=== PATIENT | male | born 1980 | race African-American/Black ===

== ENCOUNTER 2022-10-19 10:21 | Outpatient (CLI) | payer OTHER, SELFPAY ==
--- NOTE | ~2022-10-19 | XR_ITS ---
Cervical Spine: AP, lateral, open-mouth views Clinical History: Pain Findings: The normal lordotic curve is maintained. No fracture or subluxation seen. There is minimal degenerative disc change at C3-C4.. Pre-vertebral soft tissues are unremarkable. Impression: Minimal degenerative disc narrowing at C3-C4. Reviewed, dictated and finalized at [facility]. [employer] Impression: Minimal degenerative disc narrowing at C3-C4.
== END 2022-10-19 10:22 | disposition home or self-care (01) ==
LOC: ANHIMG 10:28
PROVIDERS: PCP Nurse Practitioner Adult Health; Visit Provider Nurse Practitioner Adult Health
DX: M54.2 Cervicalgia (principal)
CPT/HCPCS: 72050

== ENCOUNTER 2022-11-26 07:46 | Outpatient (RCR) | payer OTHER, SELFPAY ==
--- NOTE | 2022-11-26 11:15 | PTOPEVAL1 ---
Assessment and note entered by Luz Marina David PT Evaluation Information Assessment Status Evaluation Diagnosis Cervical disc degeneration Subjective Information Pt reporting pain only when he looks up from his phone. Pt mention having a family history of poor posture. Reported Pain Level Pain Score 0: Self Report Additional Pain Score Comments Pt only able to report pain when looking up from his phone after long period of time. Assessment PT Clinical Summary Pt is a 42 year old male who presents with cervical pain. Pt only able to report pain is worse when he has been on his phone for long period of time then tries to look up. Pt has poor posture with noted moderately forward head and rounded shoulders. Pt also has a noted L trunk lean with unsupported sitting. Pt educated on sleeping positioning and posture when using cellphone to reduce pain. Pt noted to have limited active ROM in all directions with cervical assessment, but no increase in pain. Pt trained on HEP, but it was noted the pt must break down the movements and correctly perform exercises (poor body awareness). Pt will benefit from skilled therapy to reduce cervical pain, increase active ROM in all directions, improve posture, and increase body awareness with tasks such as lifting . Plan of Care Interventions Hot Pack/Cold Pack,Manual Therapy,Mechanical Traction,Neuro Re-education,Patient/Caregiver Education,Therapeutic Activities,Therapeutic Exercise,Ultrasound PT Services Indicated Yes Treatment Frequency and 2x/week for 4 weeks Duration These treatments will address the objective and functional deficits as defined above. The patient will be advanced safely and appropriately in order for the patient to progress towards his/her prior level of function. Additional exercises will be introduced and as well as a comprehensive home exercise program upon discharge, if needed, ?to ensure carryover of functional gains achieved in the clinic. This treatment plan has been reviewed and agreement upon by the patient.
== END 2023-02-20 14:56 | disposition home or self-care (01) ==
LOC: ANHPT 07:46
PROVIDERS: PCP Nurse Practitioner Adult Health; Visit Provider Family Medicine
DX: M50.30 Other cervical disc degeneration, unspecified cervical region (principal)
CPT/HCPCS: 97110; 97161

== ENCOUNTER 2024-02-23 09:21 | Emergency (ER) | payer BC, SELFPAY ==
[2024-02-23 09:24] VITALS: BP 143/106; PULSE 58; RESP 20; TEMP 36.6; O2SAT 97
--- NOTE | 2024-02-23 10:00 | ED.SKABFB ---
HPI - Skin/Abscess/Foreign Bdy General Chief complaint: Skin/Abscess/Foreign Body Stated complaint: boil Time Seen by Provider: 02/23/24 09:39 Source: patient Mode of arrival: ambulatory Limitations: no limitations History of Present Illness HPI narrative: 43-year-old here with a complaint of draining boil in his left groin for past 1 week. Patient states that he had a similar issue was cover early years ago with a tack to be lanced. No history of fever or chills. Did MD complaint: abscess/boil Onset (ago): week(s) (1) Location: LLE (Left groin) Severity: mild Pain Consistency: constant Relieving factors: none Exacerbating factors: none Context: none Related Data Allergies Allergy/AdvReac Type Severity Reaction Status Date / Time No Known Allergies Allergy Verified 02/23/24 09:27 Review of Systems Review of Systems: All systems reviewed & are unremarkable except as noted in HPI and below Constitutional: Constitutional: Reports no additional constitutional complaints Eyes: Eyes: Reports no additional eye complaints Cardiovascular: Cardiovascular: Reports no additional cardiovascular complaints Respiratory: Respiratory: Reports no additional respiratory complaints Musculoskeletal: Musculoskeletal: Reports as per HPI Integumentary/Breasts: Skin/Breast: Reports as per HPI Neurologic: Reports system reviewed and no additional complaints, except as documented Endocrine: Endocrine: Reports no additional endocrine complaints Exam Narrative: GENERAL: Well-appearing, well-nourished, and in no acute distress. Strong smell of marijuana HEAD: Normocephalic, atraumatic. EYES: PERRLA and EOMI. ENT: Nares clear, no rhinorrhea or epistaxis. Mucous membranes moist. NECK: Supple. CHEST: Clear to auscultation. No respiratory distress. HEART: Regular rate and rhythm. No murmur heard. Normal peripheral pulses. ABDOMEN: Soft, nontender, nondistended, normal active bowel sounds. EXTREMITIES: Normal range of motion. No edema. A small draining boil in the left groin area SKIN: Warm, dry, no rash. NEURO: No focal deficits. Alert and oriented x3. PSYCH: Normal mood and affect. Course Course Emergency Course: Advised him to take antibiotic as prescribed warm compresses to the area, follow-up with the surgeon if it is not getting any better in 1 wk Vital Signs Vital signs: Vital Signs Temperature 36.6 C 02/23/24 09:24 Pulse Rate 58 L 02/23/24 09:24 Respiratory Rate 20 02/23/24 09:24 Blood Pressure 143/106 H 02/23/24 09:24 Pulse Oximetry 97 02/23/24 09:24 Oxygen Delivery Room Air 02/23/24 09:24 Temperature 36.6 C 02/23/24 09:24 Pulse Rate 58 L 02/23/24 09:24 Respiratory Rate 20 02/23/24 09:24 Blood Pressure 143/106 H 02/23/24 09:24 Pulse Oximetry 97 02/23/24 09:24 Oxygen Delivery Room Air 02/23/24 09:24 Discharge Plan Discharge Clinical Impression: Abscess of groin, left Patient Disposition: Home, Self-Care Condition: Stable Instructions: Folliculitis (ED) Additional Instructions: Take antibiotic as prescribed, warm compress to the area Tylenol or ibuprofen for pain. Prescriptions: New doxycycline hyclate 100 mg capsule 100 mg PO BID Qty: 14 0RF Follow-up/Referrals: Charly,Warren Grullon APRN [Primary Care Provider] - Time of Disposition: 10:06
== END 2024-02-23 10:14 | disposition home or self-care (01) ==
PROVIDERS: Emergency Provider Family Medicine; PCP Nurse Practitioner Adult Health
DX: L02.214 Cutaneous abscess of groin (principal)
CPT/HCPCS: 99283

== ENCOUNTER 2024-10-23 22:49 | Emergency (ER) | payer SELFPAY ==
--- OUTSIDE RECORDS SUMMARY | 2024-10-23 22:50 | XMS_ITS | Patient Health Summary ---
Author Organization [facility] Address [address] [place] [address] Care Team Providers Care Historical Guide Name Role Phone Unavailable Primary Care Provider Unavailabl e Note from [facility],non-owned Affiliates and Associated Physician Practices is amultiple site organization consisting of ambulatory clinics and hospital sitesin [place], [place], [place] and [place]. This disclosure is being madepursuant to the Care Everywhere program and may not contain all information available regarding this patient. Last updated 18.[facility] Allergies No known active allergies Medications * Be aware that medications may not be up to date on this document. Alwaysverify current medications with the patient. * cjidlliw-edplcgjfr-ps (CORTISPORIN) [id number] otic suspension(Started 09/23/2018) Instill 3 drops into right ear 3 times daily Active Problems Problem Noted Date Diagnosed Date Airway compromise 01/05/2023 Facial swelling 01/04/2023 Submandibular abscess 01/04/2023 Facial cellulitis 01/04/2023 Bandemia 01/04/2023 Essential (primary) hypertension 01/04/2023 Elevated cholesterol 01/04/2023 Poor dentition 01/04/2023 Obesity 01/04/2023 Social History Tobacco Use Types Packs/Day Years Used Date Smoking Tobacco: Some Days Cigarettes Smokeless Tobacco: Never Alcohol Use Standard Drinks/Week Comments No 0 (1 standard drink = 0.6 oz pur e alcohol) AUDIT-C Answer Date Recorded Q1: How often do you have a drink containing alcohol? Never 01/05/2023 Q2: How many drinks containi ng alcohol do you have on a typical day when you are drinking? Patient does not drink 04/15/202 3 Q3: How often do you have si x or more drinks on one occasion? Never 01/05/2023 Overall Financial Resource Strain (CARDIA) Answe r Date Recorded How hard is it for you to pa y for the very basics like food, housing, medical care, and heating? Not hard at all 01/05/2023 [facility] - Occupational Stress Questionnaire Answer Date Recorded Do you feel stress - tense, restless, nervous, or anxious, or unable to sleep at night because your mind is troubled all the time - these days? Not at all 01/05/2023 Hunger Vital Sign Answer Date Recorded Within the past 12 months, y ou worried that your food would run out before you got the money to buy more. Never true 01/06/20 23 Within the past 12 months, t he food you bought just didn't last and you didn't have money to get more. Never true 01/05/2023 PRAPARE - Transportation Answer Date Re corded In the past 12 months, has l ack of transportation kept you from medical appointments or from getting medications? No 12/22 In the past 12 months, has l ack of transportation kept you from meetings, work, or from getting things needed for daily living? No 01/05/2023 Housing Stability Vital Sign Answer Yair e Recorded In the last 12 months, was t here a time when you were not able to pay the mortgage or rent on time? No 01/05/2023 In the last 12 months, how many places have you lived? 1 01/05/2023 In the last 12 months, was t here a time when you did not have a steady place to sleep or slept in a jail (including now)? No 01/05/2023 Sex and Gender Information Value Date Recorded Sex Assigned at Not on file Gender Identity Not on file Sexual Orientation Not on file Last Filed Vital Signs Vital Sign Reading Time Taken Comments Blood Pressure 134/90 01/06/2023 12:04 PM CDT Pulse 71 01/06/2023 12:04 PM CDT Temperature 37.2 ??C (98.9 ??F) 01/06/2023 12:04 PM C DT Respiratory Rate 17 01/06/2023 12:04 PM CDT Oxygen Saturation 99% 01/06/2023 12:04 PM CDT Inhaled Oxygen Concentration - - Weight 99 kg (218 lb 3.2 oz) 01/06/2023 4:09 AM CDT Height 185.4 cm (6' 1 ) 01/04/2023 4:16 PM CDT Body Mass Index 28.79 01/04/2023 4:16 PM CDT Procedures * BASIC METABOLIC PANEL (CALCIUM TOTAL)(Performed 01/06/2023) * LIPID PROFILE(Performed 01/06/2023) * HEMOGLOBIN A1C(Performed 01/06/2023) * PHOSPHORUS BLOOD(Performed 01/06/2023) * MAGNESIUM BLOOD(Performed 01/06/2023) * CBC W/O DIFFERENTIAL(Performed 01/06/2023) * CULTURE BLOOD(Performed 01/05/2023) * BLOOD TYPE VERIFICATION(Performed 01/05/2023) * CULTURE WOUND+GRAM STAIN(Performed 01/05/2023) * RESPIRATORY PANEL WITH SARS-COV-2 BY PCR (STL)(Performed 01/05/2023) * LACTIC ACID BLOOD(Performed 01/05/2023) * COMPREHENSIVE METABOLIC PANEL(Performed 01/05/2023) * CBC W/O DIFFERENTIAL(Performed 01/05/2023) * CULTURE BLOOD(Performed 01/05/2023) * GLUCOSE - POINT OF CARE(Performed 01/05/2023) * CT NECK SOFT TISSUE W CONT(Performed 01/04/2023) Performed for Submandibular abscess * XR PANOREX(Performed 01/04/2023) Performed for Facial swelling, Poor dentition * TYPE + SCREEN PANEL(Performed 01/04/2023) * C-REACTIVE PROTEIN(Performed 01/04/2023) * ERYTHROCYTE SEDIMENTATION RATE(Performed 01/04/2023) * BASIC METABOLIC PANEL (CALCIUM TOTAL)(Performed 01/04/2023) * CBC W AUTO DIFFERENTIAL(Performed 01/04/2023) * ED FOREIGN BODY REMOVAL(Performed 09/27/2018) Performed for Foreign body of right ear, initial encounter Results * HEMOGLOBIN A1C (01/06/2023 2:51 AM CDT) Hemoglobin A1c 5.6 <=5.6 % 01/06/2023 3:39 PM CDT [facility] Estimated Average Glucose 114 mg/dL 01/06/2023 3:39 PM [facility] Comment: HbA1c Interpretation: Normal : < 5.7% Pre-diabetes: 5.7-6.4% Diabetes: Equal to or greater than 6.5% Test results diagnostic of diabetes should be repeated for confirmation. Treatment target values recommended by ADA and other clinical organizations should be used to evaluate metabolic control in patients. Reference: Citizen [place] Diabetes Association, Standards of Care in Diabetes -2020 In patients 70 years and older consider HbA1c target range of 7.0-7.5% (Reference: Xander Garcia et al. JAMDA. 2012) The Sebia assay for the measurement of HbA1c is a National Glycohemoglobin Standardization Program (NGSP) certified method. Blood BLOOD SPECIMEN / Unknown Lab Venipuncture / Unknown 01/06/2023 2:51 AM CDT 01/06/2023 3:45 AM CDT Mil Brunson MD LAB - CHEMISTRY KIAN SAMAYOA [facility] Organization Address City/State/ZIP Co de Phone Number [address] [phone] [phone] * (ABNORMAL) CBC W/O DIFFERENTIAL (01/06/2023 2:51 AM CDT) Only the most recent of2 resultswithin the time period is included. WBC 12.3(H) 3.5 - 10.5 10? 3 /uL 01/06/2023 3:51 AM [facility] RBC 5.82(H) 4.30 - 5.70 10? 6 /uL 01/06/2023 3:51 AM [facility] Hemoglobin 14.0 12.0 - 17.6 g/dL 01/06/2023 3:51 AM [facility] Hematocrit 41.3 35.2 - 51.7 % 01/06/2023 3:51 AM [facility] MCV 71.0(L) 80.7 - 98.3 fL 01/06/2023 3:51 AM [facility] MCH 24.1(L) 26.7 - 34.0 pg 01/06/2023 3:51 AM [facility] MCHC 33.9 30.8 - 35.9 g/dL 01/06/2023 3:51 AM T [facility] RDW-SD 37.2 36.0 - 50.0 fL 01/06/2023 3:51 AM [facility] RDW-CV 14.9(H) 11.2 - 14.8 % 01/06/2023 3:51 AM [facility] Platelet Count 232 150 - 400 10? 3 /uL 01/06/2023 3:51 AM [facility] MPV 10.8 9.4 - 12.9 fL 01/06/2023 3:51 AM [facility] Immature Platelet Fraction 2.4 1.1 - 6.2 % 01/06/2023 3:51 AM [facility] nRBC Absolute 0.00 0 10? 3 /uL 01/06/2023 3:51 AM [facility] nRBC Auto 0.0 0 /100 WBC 01/06/2023 3:51 AM [facility] Blood BLOOD SPECIMEN / Unknown Lab Venipuncture / Unknown 01/06/2023 2:51 AM CDT 01/06/2023 3:44 AM CDT Mil Brunson MD LAB - HEMATOLOGY ORD ERABLES [facility] [address] [place] [id number], [facility] [phone] * (ABNORMAL) BASIC METABOLIC PANEL (CALCIUM TOTAL) (01/06/2023 2:51 AM CDT) Only the most recent of2 resultswithin the time period is included. BUN 18 7 - 26 mg/dL 01/06/2023 4:13 AM [facility] Creatinine 0.75 0.71 - 1.16 mg/dL 01/06/2023 4:13 AM [facility] Sodium 139 136 - 145 mmol/L 01/06/2023 4:13 AM [facility] Potassium 3.3(L) 3.5 - 4.5 mmol/L 01/06/2023 4:13 AM [facility] Chloride 106 98 - 107 mmol/L 01/06/2023 4:13 AM [facility] CO2 22 22 - 29 mmol/L 01/06/2023 4:13 AM [facility] Glucose 103 70 - 115 mg/dL 01/06/2023 4:13 AM [facility] Calcium 9.1 8.4 - 10.2 mg/dL 01/06/2023 4:13 AM [facility] Anion Gap 14 8 - 18 01/06/2023 4:13 AM [facility] BUN/Creatinine Ratio 24(H) 7 - 23 01/06/2023 4:13 AM [facility] Osmolality Calculated 290 270 - 300 mOsm/kg 01/06/2023 4:13 AM [facility] eGFR by CKD-EPI >90 >=90 mL/min/1.7 3 m2 01/06/2023 4:13 AM [facility] Blood BLOOD SPECIMEN / Unknown Lab Venipuncture / Unknown 01/06/2023 2:51 AM CDT 01/06/2023 3:44 AM CDT Mil Brunson MD LAB - CHEMISTRY KIAN SAMAYOA [address] [address], [facility] [phone] * (ABNORMAL) PHOSPHORUS BLOOD (01/06/2023 2:51 AM CDT) Phosphorus 2.2(L) 2.8 - 5.1 mg/dL 01/06/2023 4:13 AM [facility] Blood BLOOD SPECIMEN / Unknown Lab Venipuncture / Unknown 01/06/2023 2:51 AM CDT 01/06/2023 3:44 AM CDT Mil Brunson MD LAB - CHEMISTRY KIAN SAMAYOA [address] [address], [place] [phone] * MAGNESIUM BLOOD (01/06/2023 2:51 AM CDT) Pathologist [facility] Magnesium 2.0 1.6 - 2.6 mg/dL 01/06/2023 4:13 AM [facility] Blood BLOOD SPECIMEN / Unknown Lab Venipuncture / Unknown 01/06/2023 2:51 AM CDT 01/06/2023 3:44 AM CDT Mil Brunson MD LAB - CHEMISTRY KIAN SAMAYOA [facility] [address] [place] [address], [facility] [phone] * (ABNORMAL) LIPID PROFILE (01/06/2023 2:51 AM CDT) [facility] Cholesterol Total 202(H) <200 mg/dL 01/06/2023 4:13 AM [facility] HDL 41 >40 mg/dL 01/06/2023 4:13 AM [facility] Comment: ATP III Classification of HDL Cholesterol: ? <40 mg/dL: ??Considered a major risk factor. ? >60 mg/dL: ??Considered a negative risk factor. ? LDL Calculated 144(H) <100 mg/dL 01/06/2023 4:13 AM [facility] Comment: ATP III Classification of LDL Cholesterol: ?<100 mg/dL: ??Optimal ? 100 - 129 mg/dL: ??Near Optimal/Above Optimal ? 130 - 159 mg/dL: ??Borderline High ? 160 - 189 mg/dL: ??High ?>190 mg/dL: ??Very High ? Triglycerides 85 <150 mg/dL 01/06/2023 4:13 AM [facility] Comment: ATP III Classification of Triglycerides: ?<150 mg/dL: ??Normal ? 150 - 199 mg/dL: ??Borderline High ? 200 - 400 mg/dL: ??High ?>500 mg/dL: ??Very High Blood BLOOD SPECIMEN / Unknown Lab Venipuncture / Unknown 01/06/2023 2:51 AM CDT 01/06/2023 3:44 AM CDT Mil Brunson MD LAB - CHEMISTRY KIAN SAMAYOA Performing Organization Address [facility]/ZIP Co de Phone Number [facility] [address] [place] [address], [place] [phone] * CULTURE BLOOD (01/05/2023 12:42 PM CDT) Only the most recent of2 resultswithin the time period is included. Culture No growth day 5 ALFONZO 01/10/2023 5:02 PM CDT [facility] Blood PERIPHERAL BLOOD / Unknown Venipuncture / Unknown 01/05/2023 12:42 PM CDT 01/05/2023 12:48 PM CDT Mil Brunson MD LAB - MICROBIOLOGY O RDERAISABELLA Performing Organization Address [facility] Co de Phone Number [facility] [address] [place] [address], [facility] [phone] * BLOOD TYPE VERIFICATION (01/05/2023 12:34 PM CDT) ABO Rh O POS 01/05/2023 1:3 0 PM CDT [facility] Blood Bank BLOOD SPECIMEN / Unknown Venipuncture / Unknown 01/05/2023 12:34 PM CDT 01/05/2023 12:51 PM CDT Neema Mcnamara MD LAB - BLOOD BANK ORD VIDHI Performing Organization Address [facility] Co de Phone Number [facility] [address] [place] [address], [place] [phone] * CULTURE WOUND+GRAM STAIN (01/05/2023 8:39 AM CDT) Pathologist [facility] Culture Light normal oropharyngeal madhav 01/07/2023 10:13 PM CDT [facility] Gram Stain Moderate Polymorphonuclear cells 01/07/2023 10:13 PM CDT [facility] Gram Stain Moderate Gram-positive cocci 01/07/2023 10:13 PM CDT [facility] Gram Stain Light Gram-positive bacilli 01/07/2023 10:13 PM CDT [facility] Gram Stain Light Gram-negative bacilli 01/07/2023 10:13 PM CDT [facility] Microbiology ENTIRE MOUTH REGION / Unknown Collection / Unknown 01/05/2023 8:39 AM CDT 01/05/2023 8:42 AM CDT Mil Brunson MD LAB - MICROBIOLOGY O RDERABLES [facility] [address] [place] [address], [facility] [phone] * RESPIRATORY PANEL WITH SARS-COV-2 BY PCR (STL) (01/05/2023 5:19 AM CDT) [facility] Adenovirus PCR Not detected Not detected 01/05/2023 12:55 PM CDT [facility] Coronavirus 229E PCR Not detected Not detected 01/05/2023 12:55 PM CDT [facility] Coronavirus HKU1 PCR Not detected Not detected 01/05/2023 12:55 PM CDT [facility] Coronavirus NL63 PCR Not detected Not detected 01/05/2023 12:55 PM CDT [facility] Coronavirus OC43 PCR Not detected Not detected 01/05/2023 12:55 PM CDT [facility] COVID-19 PCR Not detected Not detected 01/05/2023 12:55 PM CDT [facility] Human Metapneumovirus PCR Not detected Not detected 01/05/2023 12:55 PM CDT [facility] Human Rhinovirus/Enterov irus PCR Not detected Not detected 01/05/2023 12:55 PM CDT [facility] Influenza A PCR Not detected Not detected 01/05/2023 12:55 PM CDT [facility] Influenza B PCR Not detected Not detected 01/05/2023 12:55 PM CDT [facility] Parainfluenza Virus 1 PCR Not detected Not detected 01/05/2023 12:55 PM CDT [facility] Parainfluenza Virus 2 PCR Not detected Not detected 01/05/2023 12:55 PM CDT [facility] Parainfluenza Virus 3 PCR Not detected Not detected 01/05/2023 12:55 PM CDT [facility] Parainfluenza Virus 4 PCR Not detected Not detected 01/05/2023 12:55 PM CDT [facility] Respiratory Syncytial Virus PCR Not detected Not detected 01/05/2023 12:55 PM CDT [facility] Bordetella parapertussis PCR Not detected Not detected 01/05/2023 12:55 PM CDT [facility] Bordetella pertussis PCR Not detected Not detected 01/05/2023 12:55 PM CDT [facility] Chlamydia pneumoniae PCR Not detected Not detected 01/05/2023 12:55 PM CDT [facility] Mycoplasma pneumoniae PCR Not detected Not detected 01/05/2023 12:55 PM CDT [facility] Microbiology SPECIMEN FROM NASOPHARYNGEAL STRUCTURE / Unknown Collection / Unknown 01/05/2023 5:19 AM CDT 01/05/2023 5:34 AM CDT Narrative [facility] - 01/05/2023 12:55 PM CDT This nucleic amplification assay has received FDA authorization via the [employer]. Mil Brunson MD LAB - MICROBIOLOGY O RDERABLES [facility] [address] [place] [address], [facility] [phone] * (ABNORMAL) COMPREHENSIVE METABOLIC PANEL (01/05/2023 4:58 AM CDT) BUN 13 7 - 26 mg/dL 01/05/2023 5:31 AM CDT [facility] Creatinine 0.72 0.71 - 1.16 mg/dL 01/05/2023 5:31 AM CDT [facility] Sodium 140 136 - 145 mmol/L 01/05/2023 5:31 AM [facility] Potassium 3.4(L) 3.5 - 4.5 mmol/L 01/05/2023 5:31 AM [facility] Chloride 106 98 - 107 mmol/L 01/05/2023 5:31 AM [facility] CO2 23 22 - 29 mmol/L 01/05/2023 5:31 AM [facility] Glucose 119(H) 70 - 115 mg/dL 01/05/2023 5:31 AM [facility] Calcium 9.5 8.4 - 10.2 mg/dL 01/05/2023 5:31 AM [facility] Protein Total 7.8 6.0 - 8.3 g/dL 01/05/2023 5:31 AM [facility] Albumin 3.9 3.4 - 5.0 g/dL 01/05/2023 5:31 AM [facility] Bilirubin Total 0.7 0.2 - 1.2 mg/dL 01/05/2023 5:31 AM [facility] Alkaline Phosphatase 101 40 - 150 U/L 01/05/2023 5:31 AM [facility] ALT 28 5 - 55 U/L 01/05/2023 5:31 AM [facility] AST 18 5 - 34 U/L 01/05/2023 5:31 AM [facility] Anion Gap 14 8 - 18 01/05/2023 5:31 AM [facility] BUN/Creatinine Ratio 18 7 - 23 01/05/2023 5:31 AM [facility] Osmolality Calculated 291 270 - 300 mOsm/kg 01/05/2023 5:31 AM [facility] Albumin/Globulin Ratio 1.0(L) 1.1 - 2.3 01/05/2023 5:31 AM [facility] eGFR by CKD-EPI >90 >=90 mL/min/1.7 3 m2 01/05/2023 5:31 AM [facility] Blood BLOOD SPECIMEN / Unknown Venipuncture / Unknown 01/05/2023 4:58 AM CDT 01/05/2023 5:03 AM T Mil Brunson MD LAB - CHEMISTRY KIAN SAMAYOA [address] [address], [place] [phone] * LACTIC ACID BLOOD (01/05/2023 4:58 AM CDT) Lactic Acid-Stat 1.4 <=2.0 mmol/L 01/05/2023 5:26 AM CDT [facility] Blood BLOOD SPECIMEN / Unknown Venipuncture / Unknown 01/05/2023 4:58 AM CDT 01/05/2023 5:03 AM CDT Macy Mason MD LAB - CHEMISTRY KIAN SAMAYOA [address] [address], [place] [phone] * (ABNORMAL) GLUCOSE - POINT OF CARE (01/05/2023 12:30 AM CDT) Pathologist [facility] Glucose WB/POC 171(H) 70 - 115 mg/dL 01/05/2023 6:09 AM CDT [facility] Specimen Type Cap Fingerstick 2022 6:09 AM CDT [facility] Blood BLOOD SPECIMEN / Unknown 01/05/2023 12:30 AM CDT 01/05/2023 6:09 AM CDT Mil Brunson MD LAB - POINT OF CARE ORDERABLES [address] [address], [place] [phone] * CT NECK SOFT TISSUE W CONT (01/04/2023 9:23 PM CDT) Anatomical Region Laterality Modality Head Computed Tomogra phy 01/04/2023 10:3 4 PM CDT Impressions 01/04/2023 10:57 PM CDT IMPRESSION: Edema in the submandibular and sublingual spaces bilaterally, left greater than right, with multiple tissue to reactive lymph nodes. No drainable fluid collection. > Interpreting Provider: Filiberto Monte MD on 01/04/2023 10:57 PM Narrative 01/04/2023 10:57 PM CDT PROCEDURE: ??CT NECK SOFT TISSUE W CONT DATE/TIME OF EXAM: ??01/04/2023 9:27 PM CLINICAL INFORMATION: None relevant/not provided if blank. Indication: K12.2: Submandibular abscess Additional History: COMPARISON: None. TECHNIQUE: CT of the neck] was performed during intravenous contrast administration utilizing standard protocol. CT dose reduction technique was used, including Automated Exposure Control. IV CONTRAST: IOPAMIDOL 76 % IV SOLN:100 mL FINDINGS: There is edema of the soft tissues in the submandibular and sublingual spaces bilaterally, left greater than right. There are multiple prominent subcentimeter lymph nodes, likely reactive. No drainable fluid collection is seen. Submandibular glands may be hyperemic. The parotid glands and thyroid gland are unremarkable. The airways patent. There is mild atherosclerosis of the carotid bifurcations. The vessels of the neck are otherwise unremarkable. Lung apices are clear. No acute osseous abnormalities seen. There are multiple missing molars with chronic appearing erosion of the right posterior maxillary alveolar process. Procedure Note Filiberto Monte MD - 01/04/2023 PROCEDURE: CT NECK SOFT TISSUE W CONT DATE/TIME OF EXAM: 01/04/2023 9:27 PM CLINICAL INFORMATION: None relevant/not provided if blank. Indication: K12.2: Submandibular abscess Additional History: COMPARISON: None. TECHNIQUE: CT of the neck] was performed during intravenous contrast administration utilizing standard protocol. CT dose reduction technique was used, including Automated ExposureControl. IV CONTRAST: IOPAMIDOL 76 % IV SOLN:100 mL FINDINGS: There is edema of the soft tissues in the submandibular and sublingual spaces bilaterally, left greater than right. There are multipleprominent subcentimeter lymph nodes, likely reactive. No drainable fluidcollection is seen. Submandibular glands may be hyperemic. The parotid glands and thyroid gland are unremarkable. The airways patent. There is mild atherosclerosis of the carotid bifurcations. The vessels of the neck are otherwise unremarkable. Lung apices are clear. No acute osseous abnormalities seen. There are multiple missing molars with chronic appearing erosion of the right posterior maxillary alveolar process. IMPRESSION: Edema in the submandibular and sublingual spaces bilaterally, leftgreater than right, with multiple tissue to reactive lymph nodes. No drainable fluid collection. > Interpreting Provider: Filiberto Monte MD on 01/04/2023 10:57 PM [address] Barkley MD CT ORDERABLES * XR PANOREX (01/04/2023 8:56 PM CDT) Anatomical Region Laterality Modality Head Radiographic Tracy ging 01/05/2023 8:39 AM CDT Impressions 01/05/2023 11:07 AM CDT IMPRESSION: Odontogenic disease without periapical lucency. > Dictated by Artemio Cabrera MD (resident) I, Liliane Laguna MD have personally reviewed and interpreted this examination/study. > Interpreting Provider: Liliane Laguna MD on 01/05/2023 11:07 AM Narrative 01/05/2023 11:07 AM CDT PROCEDURE: ??XR PANOREX, DATE/TIME OF EXAM: ??01/04/2023 8:57 PM, LOCATION ??[facility] INDICATION: R22.0: Facial swelling K08.9: Poor dentition ADDITIONAL CLINICAL INFORMATION: Ordering Provider Reason For Exam: ??poor dentition, suspected dental abscess COMPARISON: None. TECHNIQUE: Panorex radiograph of the mouth. FINDINGS: No periapical lucency. Multiple teeth are absent. Dental caries are seen. The mandibular condyles are situated normally over the temporomandibular fossas. ?? The visualized sinuses are clear. Procedure Note Liliane Laguna MD - 01/05/2023 PROCEDURE: XR PANOREX, DATE/TIME OF EXAM: 01/04/2023 8:57 PM[facility]ICATION: R22.0: Facial swelling K08.9: Poor dentition ADDITIONAL CLINICAL INFORMATION: Ordering Provider Reason For Exam: poor dentition, suspected dental abscess COMPARISON: None. TECHNIQUE: Panorex radiograph of the mouth. FINDINGS: No periapical lucency. Multiple teeth are absent. Dental caries areseen. The mandibular condyles are situated normally over the temporomandibular fossas. The visualized sinuses are clear. IMPRESSION: Odontogenic disease without periapical lucency. > Dictated by Artemio Cabrera MD (resident) I, Liliane Laguna MD have personally reviewed and interpreted this examination/study. > Interpreting Provider: Liliane Laguna MD on 1:07 AM Mil Brunson MD DIAGNOSTIC IMAGING O RDERABLES * (ABNORMAL) C-REACTIVE PROTEIN (01/04/2023 5:15 PM CDT) C-Reactive Protein 3.8(H) <=0.5 mg/dL 01/04/2023 5:47 PM CDT [facility] Blood BLOOD SPECIMEN / Unknown Venipuncture / Unknown 01/04/2023 5:15 PM CDT 01/04/2023 5:22 PM CDT Reinaldo Barkley MD LAB - CHEMISTRY KIAN SAMAYOA [facility] [address] [place] [address], [facility] [phone] * TYPE + SCREEN PANEL (01/04/2023 5:15 PM CDT) Antibody Screen NEG 6:10 PM CDT [facility] ABO Rh O POS 01/04/2023 6:10 PM CDT [facility] Blood Bank BLOOD SPECIMEN / Unknown Venipuncture / Unknown 01/04/2023 5:15 PM CDT 01/04/2023 5:27 PM CDT Reinaldo Barkley MD LAB - BLOOD BANK ORD VIDHI [facility] [address] [place] [address], [facility] [phone] * (ABNORMAL) ERYTHROCYTE SEDIMENTATION RATE (01/04/2023 5:15 PM CDT) Pathologist [facility] Erythrocyte Sedimentation Rate Westergren 58(H) 0 - 15 MM/HR 01/04/2023 5:50 PM CDT [facility] Blood BLOOD SPECIMEN / Unknown Venipuncture / Unknown 01/04/2023 5:15 PM CDT 01/04/2023 5:23 PM CDT Reinaldo Barkley MD LAB - HEMATOLOGY ORD ERABLES [facility] [address] [place] [address], [facility] [facility] [phone] * (ABNORMAL) CBC W AUTO DIFFERENTIAL (01/04/2023 5:15 PM CDT) Pathologist [facility] WBC 15.7(H) 3.5 - 10.5 10? 3 /uL 01/04/2023 5:30 PM [facility] RBC 5.67 4.30 - 5.70 10? 6 /uL 01/04/2023 5:30 PM [facility] Hemoglobin 13.7 12.0 - 17.6 g/dL 01/04/2023 5:30 PM [facility] Hematocrit 40.4 35.2 - 51.7 % 01/04/2023 5:30 PM [facility] MCV 71.3(L) 80.7 - 98.3 fL 01/04/2023 5:30 PM [facility] MCH 24.2(L) 26.7 - 34.0 pg 01/04/2023 5:30 PM [facility] MCHC 33.9 30.8 - 35.9 g/dL 01/04/2023 5:30 PM [facility] RDW-SD 36.8 36.0 - 50.0 fL 01/04/2023 5:30 PM [facility] RDW-CV 14.7 11.2 - 14.8 % 01/04/2023 5:30 PM [facility] Platelet Count 235 150 - 400 10? 3 /uL 01/04/2023 5:30 PM [facility] MPV 10.1 9.4 - 12.9 fL 01/04/2023 5:30 PM [facility] Immature Platelet Fraction 2.1 1.1 - 6.2 % 01/04/2023 5:30 PM [facility] nRBC Absolute 0.00 0 10? 3 /uL 01/04/2023 5:30 PM [facility] nRBC Auto 0.0 0 /100 WBC 01/04/2023 5:30 PM [facility] Neutrophils % 89.2(H) 35.0 - 70.0 % 01/04/2023 5:30 PM [facility] Lymphocytes % 7.2(L) 20.0 - 43.0 % 01/04/2023 5:30 PM [facility] Monocytes % 2.9(L) 5.0 - 13.0 % 01/04/2023 5:30 PM [facility] Eosinophils % 0.1 0.0 - 6.0 % 01/04/2023 5:30 PM [facility] Basophil % 0.2 0.0 - 2.0 % 01/04/2023 5:30 PM [facility] Neutrophils Absolute 13.99(H) 1.60 - 7.00 10? 3 /uL 01/04/2023 5:30 PM [facility] Lymphocyte Absolute 1.13 1.10 - 3.90 10? 3 /uL 01/04/2023 5:30 PM [facility] Monocytes Absolute 0.46 0.26 - 1.07 10? 3 /uL 01/04/2023 5:30 PM [facility] Eosinophils Absolute 0.01 0.00 - 0.47 10? 3 /uL 01/04/2023 5:30 PM [facility] Basophils Absolute 0.03 0.00 - 0.08 10? 3 /uL 01/04/2023 5:30 PM [facility] Immature Granulocytes % 0.4 0.0 - 1.0 % 01/04/2023 5:30 PM [facility] Immature Granulocytes Absolute 0.07 01/04/2023 5:30 PM [facility] Blood BLOOD SPECIMEN / Unknown Venipuncture / Unknown 01/04/2023 5:15 PM CDT 01/04/2023 5:23 PM CDT Reinaldo Barkley MD LAB - HEMATOLOGY ORD ERABLES [facility] [address] [place] [address], [place] [phone] * ED FOREIGN BODY REMOVAL (09/27/2018 1:33 AM [facility]) Narrative Jacobo Mathias, DO - 09/27/2018 1:33 AM [facility] Katy Jacques, QUIN ? 09/26/2018 ??9:02 AM Foreign Body Date/Time: 09/23/2018 12:02 PM Performed by: KATY JACQUES Authorized by: KATY JACQUES Consent: ??Consent obtained: ??Verbal ??Consent given by: ??Patient ??Risks discussed: ??Incomplete removal and pain Location: ??Location: ??Ear ??Ear location: ??R ear Pre-procedure details: ??Imaging: ??None ??Neurovascular status: intact ?Preparation: Patient was prepped and draped in usual sterile fashion ?? Anesthesia (see MAR for exact dosages): ??Anesthesia method: ??None Procedure type: ??Procedure complexity: ??Simple Procedure details: ??Localization method: ??Visualized ??Dissection of underlying tissues: no ?Bloodless field: yes ?Removal mechanism: ??Forceps ??Foreign bodies recovered: ??1 ??Intact foreign body removal: yes ?? Post-procedure details: ??Neurovascular status: intact ?Confirmation: ??No additional foreign bodies on visualization ??Skin closure: ??None ??Patient tolerance of procedure: ??Tolerated well, no immediate complications Comments: ?? Removal of cotton swab from right ear. Katy TSAI PROCEDURE/MINOR MCNEILL RGICAL ORDERABLES
--- OUTSIDE RECORDS SUMMARY | 2024-10-23 22:50 | XMS_ITS | Referral Summary ---
Author Organization [facility] Address [address] [place] [address] Care Team Providers Care Gps Navigation Installer Name Role Phone Unavailable Primary Care Provider Unavailabl e Source Comments [facility],non-owned Affiliates and Associated Physician Practices is amultiple site organization consisting of ambulatory clinics and hospital sitesin [place], [place], [place] and [place]. This disclosure is being madepursuant to the Care Everywhere program and may not contain all information available regarding this patient. Last updated 18.[facility] Allergies No known active allergies Medications * Be aware that medications may not be up to date on this document. Alwaysverify current medications with the patient. Medication Sig Dispensed Refills Start Date End Date Status neomycin-polymyxin- hc (CORTISPORIN) [id number] otic suspension Instill 3 drops into right ear 3 times daily 1 bottles 09/23/2018 Active Additional Information Patient not taking.Reported on 01/05/2023 Active Problems Problem Noted Date Diagnosed Date [...] you are drinking? Patient does not drink 3 Q3: How often do you have si x or more drinks on one occasion? Never 01/05/2023 Overall Financial Resource Strain (CARDIA) Answe r Date Recorded How hard is it for you to pa y for the very basics like food, housing, medical care, and heating? Not hard at all 01/05/2023 [facility] [place] [facility] Occupat ional Health - Occupational Stress [...] place to sleep or slept in a mcc (including now)? No 01/05/2023 Sex and Gender [...] Mass Index 28.79 01/04/2023 4:16 PM CDT Functional Status Functional Status Response Date of Assess ment Is person deaf or have serious hearing difficult y? No 01/05/2023 Is person blind or have serious difficulty seein g? No 01/05/2023 Does person have serious dif ficulty walking/climbing stairs? No 01/05/2023 Does person have difficulty dressing/bathing? No 01/05/2023 Does person have difficulty doing errands alone? No 01/05/2023 Cognitive Status Response Date of Assessm ent Does person have difficulty concentrating/remembering/making decisions? No 01/05/2023 Plan of Treatment Not on file Procedures Procedure Name Priority Date/Time Associated Diagnosis Comments LIPID PROFILE AM Draw 01/06/2023 2:51 AM CDT from Last 3 Months or Most Recently Relevant to Health Maintenance Results * (ABNORMAL) LIPID PROFILE (01/06/2023 2:51 AM CDT) Cholesterol Total 202(H) <200 mg/dL 01/06/2023 4:13 AM [facility] HDL 41 >40 mg/dL 01/06/2023 4:13 AM [facility] Comment: ATP III Classification of HDL Cholesterol: ? <40 mg/dL: ??Considered a major risk factor. ? >60 mg/dL: ??Considered a negative risk factor. ? LDL Calculated 144(H) <100 mg/dL 01/06/2023 4:13 AM [facility] Comment: ATP III Classification of LDL Cholesterol: ?<100 mg/dL: ??Optimal ? 100 - 129 mg/dL: ??Near Optimal/Above Optimal ? 130 - 159 mg/dL: ??Borderline High ? 160 - 189 mg/dL: ??High ?>190 mg/dL: ??Very High ? Triglycerides 85 <150 mg/dL 01/06/2023 4:[address] [facility] Comment: ATP III Classification of Triglycerides: ?<150 mg/dL: ??Normal ? 150 - 199 mg/dL: ??Borderline High ? 200 - 400 mg/dL: ??High ?>500 mg/dL: ??Very High Blood BLOOD SPECIMEN / Unknown Lab Venipuncture / Unknown 01/06/2023 2:51 AM CDT 01/06/2023 3:44 AM CDT Mil Brunson MD LAB - CHEMISTRY KIAN SAMAYOA Performing Organization Address City/State/[facility] Co de Phone Number [facility] [address] [place] [address], [facility] [phone] from Last 3 Months or Most Recently Relevant to Health Maintenance Advance Directives * Full Code (Latest Code Status on File) Date Activated Date Inactivated Comments 01/04/2023 5:53 PM 01/06/2023 5:45 PM
--- OUTSIDE RECORDS SUMMARY | 2024-10-23 22:50 | XMS_ITS | CONTINUITY OF CARE DOCUMENT ---
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
--- OUTSIDE RECORDS SUMMARY | 2024-10-23 22:50 | XMS_ITS | Data Portability ---
Author Organization [place] - [facility] OFFICE Address [address] [place] [id number] Care Team Providers Care Manager Ui Name Role Phone BRANDYN ROBERTS Primary Care Provider Assessment Encounter Date Assessment Date Assessment LastModified by Organization Details LastModified Time 12/20/2016 12/20/2016 Hyperlipidemi a, needs follow-up Active smoking. Multiple cardiac risk factors. GERD - Esophagitis, reflux Abnormal EKG with suspected coronary artery disease. [email or web address] Not available 12/20/2016 10:36:55 06/20/2017 06/20/2017 Hyperlipidemi a, needs follow-up Active smoking. Multiple cardiac risk factors. GERD - Esophagitis, reflux Abnormal EKG with suspected coronary artery disease. [email or web address] Not available 06/20/2017 11:46:48 07/22/2017 07/22/2017 Hyperlipidemi a, needs follow-up Active smoking. Multiple cardiac risk factors. GERD - Esophagitis, reflux Abnormal EKG with suspected coronary artery disease. [email or web address] Not available 07/22/2017 11:37:24 10/07/2017 10/07/2017 Hyperlipidemi a, needs follow-up Active smoking. Multiple cardiac risk factors. GERD - Esophagitis, reflux Abnormal EKG with suspected coronary artery disease. Not available 10/07/2017 09:36:17 04/17/2018 04/17/2018 Hyperlipidemi a, needs follow-up Active smoking. Multiple cardiac risk factors. GERD - Esophagitis, reflux Abnormal EKG with suspected coronary artery disease. Not available 04/17/2018 10:02:30 Plan of Treatment Reminders Order Date Submit Date Provider Last Modified By Organization Details Last Modified Time Details Appointments None recorded. Lab None recorded. Referral None recorded. Procedures None recorded. Surgeries None recorded. Imaging electrocar diogram 2016 017 [email or web address] Not available 7 10:06:38 US, echocardio gram, transthora cic, complete, w/ color flow 2016 017 BELL Not available 7 00:18:40 electrocar diogram 2016 017 [email or web address] Not available 7 12:00:05 electrocar diogram 2017 018 [email or web address] Not available 8 11:29:33 electrocar diogram 2017 018 BELL Not available 8 15:13:41 electrocar diogram 2017 018 BELL Not available 8 20:43:31 Medication Orders simvastati n 20 mg tablet 2016 017 [facility] [address], [address], 7 12:27:08 atenolol 100 mg-chlorth alidone 25 mg tablet 2016 017 [facility] [address], [address], 7 12:25:33 lisinopril 10 mg tablet 2016 017 [facility] [address], [address], 7 12:03:45 aspirin 81 mg tablet,del ayed release 2017 018 [email or web address] [facility] [address], [address], 8 10:32:30 simvastati n 20 mg tablet 2017 018 [facility] [address] [place], [address], 8 10:54:26 atenolol 100 mg-chlorth alidone 25 mg tablet 2017 018 [facility] [address], [address], 8 10:54:28 lisinopril 10 mg tablet 2017 018 [facility] [address], [address], 8 10:54:26 Aspir-Low 81 mg tablet,del ayed release 2017 018 [facility] [address], [address], 8 10:47:51 simvastati n 20 mg tablet 2017 018 [facility] [address], [address], 8 10:47:47 atenolol 100 mg-chlorth alidone 25 mg tablet 2017 018 [facility] [address], [address], 8 10:47:47 lisinopril 20 mg tablet 2017 018 [facility] [address], [address], 8 10:47:48 Patient TargetsNo targets recorded. Patient Instructions Encounter Date Encounter Id Patient Instructions Last Modified By Organization Details Last Modified Time 12/20/2016 [id number] Weight loss 20 pounds Advised against smoking Exercise advised Low cholesterol diet advised Low sodium diet advised. unique Not available 12/20/2016 11:38:16 06/20/2017 [id number] Advised against smoking Exercise advised Low cholesterol diet advised Low sodium diet advised. [email or web address] Not available 06/20/2017 11:54:17 07/22/2017 [id number] Weight loss 20 pounds Exercise advised Low cholesterol diet advised Low sodium diet advised. [email or web address] Not available 07/22/2017 12:02:23 04/17/2018 [id number] Exercise advised Low cholesterol diet advised Low sodium diet advised. [email or web address] Not available 04/17/2018 10:47:41 Reason for Referral None Reported. Results Created Date Observation Date Name Description Value Unit Range Abnormal Flag Note LastModifiedBy Organization Detail LastModifiedTime 06/20/20 17 06/20/2017 elect rocar diogr am Result EK Sinus rhythm . Incomp lete RBBB and left axis. Anteri or fascic ular block. Nonspe cific T abnorm ality. Abnorm al. Not Available Enmanuel Ray [facility] [address], [place], [address], 06/20/2017 11:02:43 10/07/19 18 10/07/2017 elect roctammy diogr am Result EK RBBB. Not Available Enmanuel Ray [facility] [address], [place], [address], 10/07/2017 09:49:18 12/21/19 17 12/20/2016 elect roctammy johnstongr am No observ ation record ed. [email or web address] Enmanuel Sheth0 [facility] [address], [place], [address], 12/20/2016 12:15:31 06/19/20 17 04/05/2017 elect roctammy diogr am No observ ation record ed. [email or web address] Not Available 2016 14:50:46 06/25/20 17 06/20/2017 elect roctammy diogr am No observ ation record ed. [email or web address] Enmanuel Duarte MD [address] [facility] [address], [place], [address], 06/26/2017 11:41:37 06/30/20 17 06/27/2017 US, echoc ardio gram, trans thora cic, compl ete, w/ color flow No observ ation record ed. [email or web address] [facility] [address] [facility] [address], [place], [address], 07/03/2017 17:27:27 04/18/20 18 04/17/2018 elect agata diogr am No observ ation record ed. Not Available 2017 09:48:08 Result Notes None recorded. Problems Name Problem SNOMED Code Status Onset Date Resolution Date Notes Provider Name and Address Organization Details Recorded Time Benign hypertens ion 63656077 Completed 201510/07/2017 Vita [place], [facility] 8 08:55:05 Gastroeso phageal reflux disease 002968421 Active 2015 Estefany Julio [facility], [place] - [facility] 6 11:25:33 Tobacco user 568924126 Active 2015 Ongoing tobacco user Sal[place] Morris [facility], [place] - [facility] 6 03:35:05 Chest pain 00804324 Active 2015 Zaya Arturo [facility], [place] - [facility] 6 03:34:30 Dyslipide shade 856389659 Active 2016 Bridgette Lisa [place], [place] - [facility] 7 15:21:34 Electroca rdiogram abnormal 114662747 Active 2017 Bridgette [place], [place] - [facility] 8 08:23:13 Diastolic heart failure 451925589 Active 2017 Bridgette [place], [place] - [facility] 8 08:23:44 Obstructi ve sleep apnea syndrome 95383220 Active 2017 Bridgette Lisa [place], [place] - [facility] 8 08:24:04 Essential hypertens ion 83417872 Active 2017 Vita atwood [facility] 8 08:55:01 Abnormal coronary artery course 004555719 Active 2017 Bridgette [place], [place] - [facility] 8 13:19:06 Problem Notes None recorded. Procedures Surgical History None recorded. Imaging Results Imaging Date Name Status LastModified by Organization Details LastModified Time 12/20/2016 [email or web address] Enmanuel Donnelly MD [address] [facility] [address], [place], [address], 12/20/2016 12:15:31 04/05/2017 electrocardiogram completed [email or web address] Informa tion not available 07/11/2017 14:50:46 06/20/2017 electrocardiogram completed [email or web address] Enmanuel Donnelly MD [address] [facility] [address], [place], [address], 06/26/2017 11:41:37 06/27/2017 US, echocardiogram, transthoracic, complete, w/ color flow [email or web address] [facility] [address] [facility] [address], [place], [address], 07/03/2017 17:27:27 04/17/2018 electrocardiogram completed [email or web address] Informa tion not available 04/18/2018 09:48:08 Procedure Notes None recorded. Medical Equipment None Reported. Allergies No known drug allergies Medications Name Sig Start Date Stop Date Status Note LastModified by Organization Details LastModified Time amoxicillin 500 mg capsule 04/17 completed Not Available Not Available Not Available atenolol 100 mg-chlorthali done 25 mg tablet qd 2017 active Not Available Not Available Not Avai lable cefuroxime axetil 250 mg tablet 10/07 completed Not Available Not Available Not Available IBU 800 mg tablet prn active Not Available Not Available Not Available clarithromyci n 500 mg tablet 06/20 completed Not Available Not Available Not Available hydrocodone 5 mg-acetaminop hen 325 mg tablet 04/17 completed Not Available Not Available Not Available lisinopril 20 mg tablet Take 1 tablet every day by oral route. 2017 active Not Available Not Available Not Avai lable atenolol 50 mg-chlorthali done 25 mg tablet qd 05/24 completed Not Available Not Available Not Available Aspir-Low 81 mg tablet,delaye d release Take 1 tablet every day by oral route. 2017 active Not Available Not Available Not Avai lable ciprofloxacin 500 mg tablet 04/17 completed Not Available Not Available Not Available simvastatin 20 mg tablet TAKE ONE TABLET BY MOUTH ONCE DAILY 2017 active Not Available Not Available Not Avai lable nystatin 100,000 unit/gram topical cream apply as needed 04/17 completed Not Available Not Available Not Available lisinopril 10 mg tablet Take 1 tablet every day by oral route. active Not Available Not Available No t Available nicotine 21 mg/24 hr daily transdermal patch active Not Available Not Available Not Available levetiracetam 750 mg tablet bid active Not Available Not Availabl e Not Available Aspirin Low Strength qd 12/20 completed Not Available Not Available Not Available Tenoretic 50mg-25 mg 05/24 completed Not Available Not Available Not Available Vitals Date Recorded Body height Body mass index (BMI) Body weight Heart rate Oxygen saturation Oxygen saturation in Arterial blood by Pulse oximetry Systolic blood pressure Diastolic blood pressure Provider Name and Address Organization Details Last Updated DateTime 7 182.88 cm 33.1 kg/m2 710012. 54 g 75 /min 97 % 97 % 140 mm[Hg] 80 mm[Hg] [facility] 7 11:35:50 Date Recorded Body height Body mass index (BMI) Body weight Heart rate Oxygen saturation Oxygen saturation in Arterial blood by Pulse oximetry Systolic blood pressure Diastolic blood pressure Provider Name and Address Organization Details Last Updated DateTime 8 182.88 cm 32.8 kg/m2 418580. 35 g 64 /min 99 % 99 % 120 mm[Hg] 82 mm[Hg] [facility] 8 09:47:33 Date Recorded Body height Body mass index (BMI) Body weight Heart rate Oxygen saturation Oxygen saturation in Arterial blood by Pulse oximetry Systolic blood pressure Diastolic blood pressure Provider Name and Address Organization Details Last Updated DateTime 8 182.88 cm 32.4 kg/m2 912274. 58 g 55 /min 92 % 92 % 150 mm[Hg] 102 mm[Hg] Deirdre Villalba [facility] 8 10:13:58 Date Recorded Body height Body weight Body mass index (BMI) Heart rate Oxygen saturation Oxygen saturation in Arterial blood by Pulse oximetry Systolic blood pressure Diastolic blood pressure Provider Name and Address Organization Details Last Updated DateTime 182.88 cm 495129. 25 g 31.2 kg/m2 64 /min 98 % 98 % 112 mm[Hg] 78 mm[Hg] rosa vieras [facility] [place] 10:57:24 Date Recorded Body height Body mass index (BMI) Body weight Provider Name and Address Organization Details Last Updated DateTime 06/20/2017 182.88 cm 33.5 kg/m2 378044.32 g Penelope Aguirre [facility] [place] 06/20/2017 11:05:17 Date Recorded Heart rate Systolic blood pressure Diastolic blood pressure Provider Name and Address Organization Details Last Updated DateTime 06/20/2017 70 /min 150 mm[Hg] 78 mm[Hg] Enmanuel Duarte MD [address] [place], [address], [facility] [place] 06/20/2017 11:52:22 Social History None recorded. Functional Status None recorded. Mental Status None recorded. Family History Relationship Description Onset Age of this Age Resolved Age Notes LastModified by Organization Details LastModified Time Father Family history of Father alive with problem Hypert ension [email or web address] Not available 05/22/2016 16:56:12 Mother Mother at age 40 of sudden suffer ed from Hypert ension and Dyslip idemia [email or web address] Not available 05/22/2016 16:56:51 Medical History Condition Response Hyperlipidemia Y Sleep Apnea Y GERD/Reflux Y Hypertension Y Past Encounters Encounter ID Performer Location Encounter Start Date Encounter Closed Date Diagnosis/Indication Diagnosis SNOMED-CT Code Diagnosis ICD10 Code Diagnosis Note [id number] MD [facility] [address] [facility] [address] [place] [address] 05/24/2016 11:47:55 05/29/2016 10:43:49 Electrocardiogram abnormal 492149824 R94.31 Atypical chest pain 1025 96816 R07.89 Treadmill Myoview Stress test, has high Nondalton Risk score. Has Known CAD, or CAD risk equivalent . To look for any ischemia. Dyslipidemia 239759006 E 78.5 Needs to keep LDL less than 70, and HDL more than 40Will [place] [id number] MD [facility] [address] [place] [address] 12/20/2016 10:21:18 12/21/2016 10:06:37 Electrocardiogram abnormal 650446848 R94.31 Atypical chest pain 1025 20113 R07.89 Treadmill Myoview Stress test WAS negative Dyslipidemia 336561904 E 78.5 Needs to keep LDL less than 70, and HDL more than 40Will get fating lipids for follow up Benign hypertension 1072 5009 I10 [id number] MD [facility] [address] [facility] [address] [place] [address] 06/20/2017 10:38:08 06/20/2017 12:00:04 Chest pain 94072564 R07.9 Electrocar diogram abnormal 798133524 R94.31 Atypical chest pain 1025 62394 R07.89 Treadmill Myoview Stress test WAS negative Dyslipidemia 397283063 E 78.5 Needs to keep LDL less than 70, and HDL more than 40Will get fating lipids for follow up Benign hypertension 1072 5009 I10 Blood pressure is elevated today, but this is only one reading, will keep close follow up, and consider medication change if blood pressure is still elevated next visit. Diastolic heart failure 319929196 I50.30 Obstructiv e sleep apnea syndrome 42844708 G47.33 on Cpap [id number] MD [place] [facility] [address] [facility] [address] [place] [address] 07/22/2017 11:19:44 07/24/2017 12:21:51 Chest pain 80703173 R07.9 Resolved Electrocar diogram abnormal 596188373 R94.31 Atypical chest pain 1025 54576 R07.89 Treadmill Myoview Stress test WAS negative Dyslipidemia 293474726 E 78.5 Needs to keep LDL less than 70, and HDL more than 40Will get fating lipids for follow up 01/11/2017 LDL 106 Benign hypertension 1072 5009 I10 Blood pressure is elevated today, but this is only one reading, will keep close follow up, and consider medication change if blood pressure is still elevated next visit. Diastolic heart failure 423771219 I50.30 Obstructiv e sleep apnea syndrome 04283634 G47.33 on Cpap [id number] MD [facility] [address] [facility] [address] [place] [address] 10/07/2017 09:35:08 10/07/2017 11:29:32 Chest pain 94589463 R07.9 Resolved Electrocar diogram abnormal 050084543 R94.31 Atypical chest pain 1025 72323 R07.89 06-21-2016 Treadmill Myoview Stress test WAS negative Dyslipidemia 229895760 E 78.5 Needs to keep LDL less than 70, and HDL more than 40Will get fating lipids for follow up 10/06/17 LDL 96 Benign hypertension 1072 5009 I10 Blood pressure is elevated today, but this is only one reading, will keep close follow up, and consider medication change if blood pressure is still elevated next visit. Diastolic heart failure 033784064 I50.30 Obstructiv e sleep apnea syndrome 27430113 G47.33 on Cpap [id number] MD [facility] [address] [facility] [address] [place] [address] 04/17/2018 09:56:30 04/17/2018 10:57:00 Chest pain 28094568 R07.9 Resolved Electrocar diogram abnormal 940382657 R94.31 Atypical chest pain 1025 83823 R07.89 06-21-2016 Treadmill Myoview Stress test WAS negative Dyslipidemia 009944829 E 78.5 Needs to keep LDL less than 70, and HDL more than 40Will get fating lipids for follow up 10/06/17 LDL 96 Benign hypertension 1072 5009 I10 Blood pressure is elevated today, but this is only one reading, will keep close follow up, and consider medication change if blood pressure is still elevated next visit. Diastolic heart failure 694119898 I50.30 Seems to be well compensate d now Obstructiv e sleep apnea syndrome 45881938 G47.33 on Cpap Health Concerns Section Related Observation LastModified by Organization Detai ls LastModified Time None Recorded Concern Status LastModified by Organization Details LastModified Time None Recorded Advance Directives Directive None Recorded Payers Encounter Date Sequence Insurance Name Policy Number Policy Roy Covered Member ID Roy Member ID Guarantor Name 12/20/2016 1 [facility] - [facility] PRIOR TO 2021 (MEDICAID REPLACEMENT - HMO) Tim Goddard [id number] 06/20/2017 1 [facility] PRIOR TO 03/23/2021 (MEDICAID REPLACEMENT - HMO) Tim Garcia Rupesh [id number] 07/22/2017 1 [facility] PRIOR TO 03/23/2021 (MEDICAID REPLACEMENT - HMO) Tim Garcia Rupesh [id number] 10/07/2017 1 [facility] PRIOR TO 03/23/2021 (MEDICAID REPLACEMENT - HMO) Tim Garcia Rupesh [id number] 04/17/2018 1 [facility] PRIOR TO 03/23/2021 (MEDICAID REPLACEMENT - HMO) Tim Garcia Rupesh [id number] Notes Date Note Type Note Provider Name and Address Organization Details Recorded Time 12/20/2016 text/html CC: CHEST PAIN, dyspnea on exertion 36 year old Man with smoking, and Hypertension , is here for follow-up. Had negative stress test done in 01/11/15 with EF 44% . He is getting night sweats. He quiting smoking. He gets dyspnea on exertion. He gained 7 pounds since last visit. He is active with walking, and working, still smokes No known coronary artery disease. No shortness of breath at rest. No dyspnea on exertion. No dizziness. No syncope. No palpitation. Results from this visit, or from the past: 05/11/15 TC 174, HDL 43, TR 43, LDL 122, AST 16, ALT 18, CPK 136. 05/11/15 SOD 143, K 3.2, CL 103, Co2 27, GLU 13, BUN 98,CR 0.8 . 04/19/15 SOD 142, K 3.5, CL 99, Co2 25, GLU 79, BUN 15,CR 0.84, 04/19/15 : TC 172. TG 49. LDL 123. HDL 39. AST 13. ALT 15. 02/10/15 SOD 139, K 3.1, CL 99, Co2 28, GLU 79, BUN 17,CR 0.7, CK 176. 02/10/15 : TC 193. TG 40. LDL 137. HDL 48. AST 19. ALT 23. EK12/20/16 Sinus rhythm. Nonspecific QRS widening. Nonspecific T-abnormality. ABNORMAL. EK05/24/16 Sinus Rhythm. Incomplete RBBB. Abnormal. EK12/07/15 Sinus bradycardia. RR (V1) non dioagnostic. Probably normal STRESS TEST: NUC: 01/11/15 Negative stress test test. Mild left ventricle dysfunction. LVEF 44% EK12/07/15 Sinus bradycardia. RR (V1) non dioagnostic. Probably normal EK01/11/15 Sinus bradycardia with sinus arrhythmia. Nonspecific intraventricular block, abnormal ECG. EK06/01/15 Sinus bradycardia. RSR (V1) nondiagnostic. Probably normal. STRESS TEST: 06-21-2016 Treadmill Nuclear Stress Test 06/21/16 : Negative stress test for ischemia. Normal LV systolic function. Exercise tolerance is above average. LVEF >45%. STRESS TEST: NUC: 01/11/15 Negative stress test test. Mild left ventricle dysfunction. LVEF 44%. Enmanuel Duarte MD [address] [place], [address], [facility] 12/20/2016 11:38:53 06/20/2017 text/html 06/20/17 CC: Follow-up CHEST PAIN, dyspnea on exertion 36 year old Man with smoking, and Hypertension, is here for follow-up. Had negative stress test done in 06/21/16 with normal LV systolic function , EF > 45% .. He gained 7 pounds since last visit. Pt presents today for follow-up. Pt reports that a few weeks ago he had a few chest pains, this was after moving a large amount of furniture. No known coronary artery disease. No shortness of breath at rest. Mild dyspnea on exertion. No dizziness. No syncope. No palpitation. pt is active. still smokes, 5-6 cigarettes a day. NO ankle edema. Tolerating medications without difficulty. Results from this visit, or from the past:01/11/17: Na 141 ,K 3.5 ,CL 97 ,CO2 29.4 ,GLU 99 ,BUN 17 ,CR 0.80 ,AST21 ,ALT47 , 05/11/15 TC 174, HDL 43, TR 43, LDL 122, AST 16, ALT 18, CPK 136. 05/11/15 SOD 143, K 3.2, CL 103, Co2 27, GLU 13, BUN 98,CR 0.8 . 04/19/15 SOD 142, K 3.5, CL 99, Co2 25, GLU 79, BUN 15,CR 0.84, 04/19/15 : TC 172. TG 49. LDL 123. HDL 39. AST 13. ALT 15. 02/10/15 SOD 139, K 3.1, CL 99, Co2 28, GLU 79, BUN 17,CR 0.7, CK 176. 02/10/15 : TC 193. TG 40. LDL 137. HDL 48. AST 19. ALT 23. EK06/20/17 Sinus rhythm. Incomplete RBBB and left axis. Anterior fascicular block. Nonspecific T abnormality. Abnormal. EK12/20/16 Sinus rhythm. Nonspecific QRS widening. Nonspecific T-abnormality. ABNORMAL. EK05/24/16 Sinus Rhythm. Incomplete RBBB. Abnormal. EK12/07/15 Sinus bradycardia. RR (V1) non dioagnostic. Probably normal STRESS TEST: NUC: 01/11/15 Negative stress test test. Mild left ventricle dysfunction. LVEF 44% EK12/07/15 Sinus bradycardia. RR (V1) non dioagnostic. Probably normal EK01/11/15 Sinus bradycardia with sinus arrhythmia. Nonspecific intraventricular block, abnormal ECG. EK06/01/15 Sinus bradycardia. RSR (V1) nondiagnostic. Probably normal. STRESS TEST: 06-21-2016 Treadmill Nuclear Stress Test 06/21/16 : Negative stress test for ischemia. Normal LV systolic function. Exercise tolerance is above average. LVEF >45%. STRESS TEST: NUC: 01/11/15 Negative stress test test. Mild left ventricle dysfunction. LVEF 44%. Enmanuel Duarte MD [address] [place], [address], [facility] 06/20/2017 11:56:40 07/22/2017 text/html 07/22/17 CC: Follow-up CHEST PAIN, dyspnea on exertion 36 year old Man with smoking, and Hypertension, is here for follow-up. Pt reports he has been compliant with his medications. Pt has lost 3 lbs since last visit. Had negative stress test done in 06/21/16 with normal LV systolic function , EF > 45% . Had ECHO done in 06/27/17 showed normal LV systolic function , EF 55-60% . Pt presents today for follow-up. No new complaints, feeling well overall. No c/o chest pain No known coronary artery disease. Pt reports he is having problems with his stomach, followed by Dr Oglesby, had 3 polyps removed. No shortness of breath at rest. Mild dyspnea on exertion. No dizziness. No syncope or near syncope. No palpitation. pt is active. still smokes, 5-6 cigarettes a day. NO ankle edema. Tolerating medications without difficulty. Results from this visit, or from the past: 01/11/17: Na 141 ,K 3.5 ,CL 97 ,CO2 29.4 ,GLU 99 ,BUN 17 ,CR 0.80 ,AST21 ,ALT47 , 05/11/15 TC 174, HDL 43, TR 43, LDL 122, AST 16, ALT 18, CPK 136. 05/11/15 SOD 143, K 3.2, CL 103, Co2 27, GLU 13, BUN 98,CR 0.8 . 04/19/15 SOD 142, K 3.5, CL 99, Co2 25, GLU 79, BUN 15,CR 0.84, 04/19/15 : TC 172. TG 49. LDL 123. HDL 39. AST 13. ALT 15. 02/10/15 SOD 139, K 3.1, CL 99, Co2 28, GLU 79, BUN 17,CR 0.7, CK 176. 02/10/15 : TC 193. TG 40. LDL 137. HDL 48. AST 19. ALT 23. EK06/20/17 Sinus rhythm. Incomplete RBBB and left axis. Anterior fascicular block. Nonspecific T abnormality. Abnormal. EK12/20/16 Sinus rhythm. Nonspecific QRS widening. Nonspecific T-abnormality. ABNORMAL. EK05/24/16 Sinus Rhythm. Incomplete RBBB. Abnormal. EK12/07/15 Sinus bradycardia. RR (V1) non dioagnostic. Probably normal STRESS TEST: NUC: 01/11/15 Negative stress test test. Mild left ventricle dysfunction. LVEF 44% EK12/07/15 Sinus bradycardia. RR (V1) non dioagnostic. Probably normal EK01/11/15 Sinus bradycardia with sinus arrhythmia. Nonspecific intraventricular block, abnormal ECG. EK06/01/15 Sinus bradycardia. RSR (V1) nondiagnostic. Probably normal. 06/27/17 ECHO: LV chamber size is normal. There is normal global systolic function and contractility. The estimated left ventricle ejection fraction is 55-60%(normal). There is mild tricuspid regurgitation. STRESS TEST: 06-21-2016 Treadmill Nuclear Stress Test 06/21/16 : Negative stress test for ischemia. Normal LV systolic function. Exercise tolerance is above average. LVEF >45%. STRESS TEST: NUC: 01/11/15 Negative stress test test. Mild left ventricle dysfunction. LVEF 44%. Enmanuel Duarte MD [address] [place], [address], [facility] 07/22/2017 12:04:21 10/07/2017 text/html 10/07/17 CC: Follow-up CHEST PAIN, dyspnea on exertion 36 year old Man with smoking, and Hypertension, is here for follow-up. Pt has lost 2 lbs since last visit. He has orthopnea, and dyspnea on exertion Pt reports he has been compliant with his medications. Had ECHO done in 06/27/17 showed normal LV systolic function , EF 55-60% . Pt presents today for follow-up. No new complaints, feeling well overall. No c/o chest pain No known coronary artery disease. Pt reports continued problems with his stomach, followed by Dr Oglesby, had 3 polyps removed. No shortness of breath at rest. Mild dyspnea on exertion. No dizziness. No syncope or near syncope. No palpitation. pt is active. Pt has quit smoking in July. NO ankle edema. Tolerating medications without difficulty. Tolerating medications without difficulty, reports taking medications as prescribed. Recent lab work on chart. Results from this visit, or from the past: 01/11/17: Na 141 ,K 3.5 ,CL 97 ,CO2 29.4 ,GLU 99 ,BUN 17 ,CR 0.80 ,AST21 ,ALT47 , 05/11/15 TC 174, HDL 43, TR 43, LDL 122, AST 16, ALT 18, CPK 136. 05/11/15 SOD 143, K 3.2, CL 103, Co2 27, GLU 13, BUN 98,CR 0.8 . 04/19/15 SOD 142, K 3.5, CL 99, Co2 25, GLU 79, BUN 15,CR 0.84, 04/19/15 : TC 172. TG 49. LDL 123. HDL 39. AST 13. ALT 15. 02/10/15 SOD 139, K 3.1, CL 99, Co2 28, GLU 79, BUN 17,CR 0.7, CK 176. 02/10/15 : TC 193. TG 40. LDL 137. HDL 48. AST 19. ALT 23. EK10/07/17 RBBB. EK06/20/17 Sinus rhythm. Incomplete RBBB and left axis. Anterior fascicular block. Nonspecific T abnormality. Abnormal. EK12/20/16 Sinus rhythm. Nonspecific QRS widening. Nonspecific T-abnormality. ABNORMAL. EK05/24/16 Sinus Rhythm. Incomplete RBBB. Abnormal. EK12/07/15 Sinus bradycardia. RR (V1) non dioagnostic. Probably normal STRESS TEST: NUC: 01/11/15 Negative stress test test. Mild left ventricle dysfunction. LVEF 44% EK12/07/15 Sinus bradycardia. RR (V1) non dioagnostic. Probably normal EK01/11/15 Sinus bradycardia with sinus arrhythmia. Nonspecific intraventricular block, abnormal ECG. EK06/01/15 Sinus bradycardia. RSR (V1) nondiagnostic. Probably normal. 06/27/17 ECHO: LV chamber size is normal. There is normal global systolic function and contractility. The estimated left ventricle ejection fraction is 55-60%(normal). There is mild tricuspid regurgitation. STRESS TEST: 06-21-2016 Treadmill Nuclear Stress Test 06/21/16 : Negative stress test for ischemia. Normal LV systolic function. Exercise tolerance is above average. LVEF >45%. STRESS TEST: NUC: 01/11/15 Negative stress test test. Mild left ventricle dysfunction. LVEF 44%. Enmanuel Duarte MD [address] [place], [address], [facility] 10/07/2017 10:54:52 04/17/2018 text/html 04/17/18 CC: Follow-up CHEST PAIN, dyspnea on exertion 37 year old Man with smoking, and Hypertension, is here for follow-up. Pt has lost 3 lbs since last visit. Pt reports his BP was 150 /121 in January. Pt was not taking his medications as prescribed. Pt has been complaint since January. Had ECHO done in 06/27/17 showed normal LV systolic function , EF 55-60% . Pt presents today for follow-up. No new complaints, feeling well overall. No c/o chest pain No known coronary artery disease. Pt reports continued problems with his stomach, followed by Dr Oglesby, had 3 polyps removed. No shortness of breath at rest. Mild dyspnea on exertion. No dizziness. No syncope or near syncope. No palpitation. pt is active. Pt has quit smoking in July. NO ankle edema. Tolerating medications without difficulty. Tolerating medications without difficulty, reports taking medications as prescribed. Recent lab work on chart. Results from this visit, or from the past: 01/11/17: Na 141 ,K 3.5 ,CL 97 ,CO2 29.4 ,GLU 99 ,BUN 17 ,CR 0.80 ,AST21 ,ALT47 , 05/11/15 TC 174, HDL 43, TR 43, LDL 122, AST 16, ALT 18, CPK 136. 05/11/15 SOD 143, K 3.2, CL 103, Co2 27, GLU 13, BUN 98,CR 0.8 . 04/19/15 SOD 142, K 3.5, CL 99, Co2 25, GLU 79, BUN 15,CR 0.84, 04/19/15 : TC 172. TG 49. LDL 123. HDL 39. AST 13. ALT 15. 02/10/15 SOD 139, K 3.1, CL 99, Co2 28, GLU 79, BUN 17,CR 0.7, CK 176. 02/10/15 : TC 193. TG 40. LDL 137. HDL 48. AST 19. ALT 23. EKG 04/17/18:RBBB EK10/07/17 RBBB. EK06/20/17 Sinus rhythm. Incomplete RBBB and left axis. Anterior fascicular block. Nonspecific T abnormality. Abnormal. EK12/20/16 Sinus rhythm. Nonspecific QRS widening. Nonspecific T-abnormality. ABNORMAL. EK05/24/16 Sinus Rhythm. Incomplete RBBB. Abnormal. EK12/07/15 Sinus bradycardia. RR (V1) non dioagnostic. Probably normal STRESS TEST: NUC: 01/11/15 Negative stress test test. Mild left ventricle dysfunction. LVEF 44% EK12/07/15 Sinus bradycardia. RR (V1) non dioagnostic. Probably normal EK01/11/15 Sinus bradycardia with sinus arrhythmia. Nonspecific intraventricular block, abnormal ECG. EK06/01/15 Sinus bradycardia. RSR (V1) nondiagnostic. Probably normal. 06/27/17 ECHO: LV chamber size is normal. There is normal global systolic function and contractility. The estimated left ventricle ejection fraction is 55-60%(normal). There is mild tricuspid regurgitation. STRESS TEST: 06-21-2016 Treadmill Nuclear Stress Test 06/21/16 : Negative stress test for ischemia. Normal LV systolic function. Exercise tolerance is above average. LVEF >45%. STRESS TEST: NUC: 01/11/15 Negative stress test test. Mild left ventricle dysfunction. LVEF 44%. Enmanuel Duarte MD [address] [place], [address], [facility] 04/17/2018 10:48:06
--- OUTSIDE RECORDS SUMMARY | 2024-10-23 22:50 | XMS_ITS | Clinical Summary ---
Author Organization [facility] Address [address] [place] [address] Care Team Providers Care Base Remover Name Role Phone Unavailable Primary Care Provider Unavailabl e Source Comments [facility],non-owned Affiliates and Associated Physician Practices is amultiple site organization consisting of ambulatory clinics and hospital sitesin [place], [place], [place] and [place]. This disclosure is being madepursuant to the Care Everywhere program and may not contain all information available regarding this patient. Last updated 18.[facility] MessageMe Allergies No known active allergies Medications * Be aware that medications may not be up to date on this document. Alwaysverify current medications with the patient. Medication Sig Dispensed Refills Start Date End Date Status neomycin-polymyxin- hc (CORTISPORIN) 3.5-62726-9 otic suspension Instill 3 drops into right [...] and heating? Not hard at all 01/05/2023 [facility] [place] of Occupat ional Health - Occupational Stress [...] Mass Index 28.79 01/04/2023 4:16 PM CDT Plan of Treatment Health Maintenance Due Date Last Done Comments COLOGUARD (AGES 45-75) - COL ON CA SCREENING 1978 COLON MONITORING 1978 COLONOSCOPY - COLON CA SCREENING 1978 CT COLONOGRAPHY - COLON CA SCREENING 1978 Colorectal Cancer Screening 1978 FIT - COLON CA SCREENING 1978 FLEX SIG - COLON CA SCREENING 1978 HIV SCREENING 1993 HEPATITIS C SCREENING 10/21/1996 DTAP/TDAP/TD VACCINES (1 - Tdap) 1997 HEPATITIS B VACCINE (1 of 3 - 19+ 3-dose series) 1997 PNEUMOCOCCAL VACCINE (1 of 2 - PCV) 1997 COVID-19 VACCINE (3 - 2023-2 5 season) 2024 03/06/2021, 02/13/2021 INFLUENZA VACCINE (#1) 2024 DEPRESSION SCREENING 09/23/2024 LIPID TESTING 01/07/2028 01/06/2023 ZOSTER VACCINE (1 of 2) 2028 HIB VACCINE Aged Out No longer eligi ble based on patient's age to complete this topic HPV VACCINE Aged Out No longer eligi ble based on patient's age to complete this topic MENINGOCOCCAL (Group B) VACCINE Aged Out No longer eligible b ased on patient's age to complete this topic MENINGOCOCCAL VACCINE Aged Out No taiwo coretta eligible based on patient's age to complete this topic Procedures Procedure Name Priority Date/Time Associated Diagnosis Comments LIPID PROFILE AM Draw 01/06/2023 2:51 AM CDT from Last 3 Months or Most Recently Relevant to Health Maintenance Results * (ABNORMAL) LIPID PROFILE (01/06/2023 2:51 AM CDT) Cholesterol Total 202(H) <200 mg/dL 01/06/2023 4:13 AM [facility] HDL 41 >40 mg/dL 01/06/2023 4:13 AM [facility] Comment: ATP III Classification of HDL Cholesterol: ? <40 mg/dL: ??Considered a major risk factor. ? >60 mg/dL: ??Considered a negative risk factor. ? LDL Calculated 144(H) <100 mg/dL 01/06/2023 4:13 AM [facility] Comment: ATP III Classification of LDL Cholesterol: ?<100 mg/dL: ??Optimal ? 100 - 129 mg/dL: ??Near Optimal/Above Optimal ? 130 - 159 mg/dL: ??Borderline High ? 160 - 189 mg/dL: ??High ?>190 mg/dL: ??Very High ? Triglycerides 85 <150 mg/dL 01/06/2023 4:13 AM [facility] Comment: ATP III Classification of Triglycerides: ?<150 mg/dL: ??Normal ? 150 - 199 mg/dL: ??Borderline High ? 200 - 400 mg/dL: ??High ?>500 mg/dL: ??Very High Blood BLOOD SPECIMEN / Unknown Lab Venipuncture / Unknown 01/06/2023 2:51 AM CDT 01/06/2023 3:44 AM CDT Mil Brunson MD LAB - CHEMISTRY KIAN SAMAYOA [facility] [address] [place] [address], [place] [phone] from Last 3 Months or Most Recently Relevant to Health Maintenance Advance Directives * Full Code (Latest Code Status on File) Date Activated Date Inactivated Comments 01/04/2023 5:53 PM 01/06/2023 5:45 PM
[2024-10-23 22:55] VITALS: BP 168/99; PULSE 89; RESP 16; TEMP 36.5; O2SAT 100
[2024-10-23 23:32] LABS: Influenza A QL RT-PCR Negative (Negative); Influenza B QL RT-PCR Positive (Negative); RSV RNA, RT-PCR Negative (Negative); SARS-CoV-2 RNA PCR Negative (Negative)
--- NOTE | 2024-10-24 01:47 | ED.URI ---
HPI - URI/Sore Throat General Chief Complaint: Upper Respiratory Infection Stated Complaint: I don't know if I have covid or flu Time Seen by Provider: 10/24/24 01:33 History of Present Illness HPI Narrative: 43-year-old male with a hx of HTN presents to the emergency department for less than 2 days of cough, congestion, body aches, chills, N/V/D. Patient is concerned he has COVID or flu. Denies recent sick contacts. Denies fever. States he has been taking Tylenol, ibuprofen and TheraFlu with minimal relief. Last dose of ibuprofen was 4 hours ago. Related Data Allergies Allergy/AdvReac Type Severity Reaction Status Date / Time No Known Allergies Allergy Verified 02/23/24 09:27 Review of Systems Review of Systems: All systems reviewed & are unremarkable except as noted in HPI and below Exam Narrative: GENERAL: Ill-appearing, well-nourished, and in no acute distress. HEAD: Normocephalic, atraumatic. EYES: EOMI. ENT: Nares clear, no rhinorrhea or epistaxis. Mucous membranes moist. NECK: Supple. CHEST: Clear to auscultation. No respiratory distress. HEART: Regular rate and rhythm. No murmur heard. Normal peripheral pulses. ABDOMEN: Soft, nontender, nondistended, normal active bowel sounds. EXTREMITIES: Normal range of motion. No edema. SKIN: Warm, dry, no rash. NEURO: No focal deficits. Alert and oriented x3 Course Vital Signs Vital signs: Vital Signs Temperature 97.7 F 10/23/24 22:55 Pulse Rate 89 10/23/24 22:55 Respiratory Rate 16 10/23/24 22:55 Blood Pressure 168/99 H 10/23/24 22:55 Pulse Oximetry 100 10/23/24 22:55 Temperature 97.7 F 10/23/24 22:55 Pulse Rate 89 10/23/24 22:55 Respiratory Rate 16 10/23/24 22:55 Blood Pressure 168/99 H 10/23/24 22:55 Pulse Oximetry 100 10/23/24 22:55 MDM - URI/Sore Throat MDM Narrative Medical decision making narrative: 43-year-old male per the history of hypertension presents to the emergency department for cough, congestion, N/V/D, body aches, chills less than 2 days. Vitals with elevated blood pressure, otherwise unremarkable. Patient is afebrile nontoxic appearing. Exam significant for the above. Viral swabs positive for influenza B consistent with patient's presentation. Will provide Tamiflu, ibuprofen, Zofran. Encouraged increased fluid intake and follow-up with PCP. Return precautions discussed. He is agreeable with the plan verbalized understanding. Discharged in stable condition. Lab Data Labs: Lab Results 10/23/24 Range/Units 22:53 Influenza A (RT-PCR) Negative (Negative) Influenza B (RT-PCR) Positive A (Negative) RSV (RT-PCR) Negative (Negative) SARS-CoV-2 RNA (RT-PCR) Negative (Negative) Discharge Plan Discharge Clinical Impression: Influenza B Patient Disposition: Home, Self-Care Condition: Stable Instructions: Antibiotic Form, Influenza (ED) Additional Instructions: Drink plenty of fluids. Take ibuprofen and Tylenol every 6 hours as directed. Follow-up with your primary care provider. Return to the emergency department if you are unable to tolerate food or fluids, developed fever 100.4 or higher that is not responding to Tylenol or ibuprofen, or other concerning symptoms. Patient Language: Swedish Prescriptions: New ibuprofen 800 mg tablet 800 mg PO TID PRN (Reason: pain) Qty: 20 0RF ondansetron 4 mg tablet,disintegrating 4 mg PO Q8H Qty: 14 0RF oseltamivir [Tamiflu] 75 mg capsule 75 mg PO Q12H 5 Days Qty: 10 0RF No Action doxycycline hyclate 100 mg capsule 100 mg PO BID Qty: 14 0RF Follow-up/Referrals: Charly,Warren Grullon, [employer] [Primary Care Provider] -
--- OUTSIDE RECORDS SUMMARY | 2024-10-24 02:05 | XMS_ITS | Clinical Summary ---
Author Organization [facility] Address [address] [place] [address] Care Team Providers Care Figure Clerk Name Role Phone Unavailable Primary Care Provider Unavailabl e Source Comments [facility],non-owned Affiliates and Associated Physician Practices is amultiple site organization consisting of ambulatory clinics and hospital sitesin [place], [place], [place] and [place]. This disclosure is being madepursuant to the Care Everywhere program and may not contain all information available regarding this patient. Last updated 18.[facility] [employer] Allergies No known active allergies Medications * Be aware that medications may not be up to date on this document. Alwaysverify current medications with the patient. Medication Sig Dispensed Refills Start Date End Date Status neomycin-polymyxin- hc (CORTISPORIN) 3.5-96992-4 otic suspension Instill 3 drops into right [...] and heating? Not hard at all 01/05/2023 [facility] [place] of Occupat ional Health - Occupational Stress [...] place to sleep or slept in a snf (including now)? No 01/05/2023 Sex and Gender [...] Total 202(H) <200 mg/dL 01/06/2023 4:13 AM [facility] HDL 41 >40 mg/dL 01/06/2023 4:13 AM [facility] Comment: ATP III Classification of HDL Cholesterol: ? <40 mg/dL: ??Considered a major risk factor. ? >60 mg/dL: ??Considered a negative risk factor. ? LDL Calculated 144(H) <100 mg/dL 01/06/2023 4:13 AM [facility] Comment: ATP III Classification of LDL Cholesterol: ?<100 mg/dL: ??Optimal ? 100 - 129 mg/dL: ??Near Optimal/Above Optimal ? 130 - 159 mg/dL: ??Borderline High ? 160 - 189 mg/dL: ??High ?>190 mg/dL: ??Very High ? Triglycerides 85 <150 mg/dL 01/06/2023 4:13 AM [facility] Comment: ATP III Classification of Triglycerides: ?<150 mg/dL: ??Normal ? 150 - 199 mg/dL: ??Borderline High ? 200 - 400 mg/dL: ??High ?>500 mg/dL: ??Very High Blood BLOOD SPECIMEN / Unknown Lab Venipuncture / Unknown 01/06/2023 2:51 AM CDT 01/06/2023 3:44 AM CDT Mil Brunson MD LAB - CHEMISTRY [facility]IAN [facility]OA [facility] [address] [place] [address], [place] [phone] from Last 3 Months or Most Recently Relevant to Health Maintenance Advance Directives * Full Code (Latest Code Status on File) Date Activated Date Inactivated Comments 01/04/2023 5:53 PM 01/06/2023 5:45 PM
--- OUTSIDE RECORDS SUMMARY | 2024-10-24 02:05 | XMS_ITS | CONTINUITY OF CARE DOCUMENT ---
Author Name juliano henao Address Unknown Organization [facility] Address [id number] [place] [address] [address] [place] [address] Phone [phone] Care Team Providers Care Director [facility] Name Role Phone BRANDYN ROBERTS MD Unavailable INSURANCE PROVIDERS Payer name Policy type / Coverage type [place] [employer] party [place] [employer] MEDICAID (2) Medicaid [id number]
--- OUTSIDE RECORDS SUMMARY | 2024-10-24 02:05 | XMS_ITS | Referral Summary ---
Author Organization [facility] Address [address] [place] [address] Care Team Providers Care Manager Aerospace Name Role Phone Unavailable Primary Care Provider Unavailabl e Source Comments [facility],non-owned Affiliates and Associated Physician Practices is amultiple site organization consisting of ambulatory clinics and hospital sitesin [place], [place], [place] and [place]. This disclosure is being madepursuant to the Care Everywhere program and may not contain all information available regarding this patient. Last updated 18.[facility] Printed Piece Allergies No known active allergies Medications * Be aware that medications may not be up to date on this document. Alwaysverify current medications with the patient. Medication Sig Dispensed Refills Start Date End Date Status neomycin-polymyxin- hc (CORTISPORIN) 3.5-36692-3 otic suspension Instill 3 drops into right [...] and heating? Not hard at all 01/05/2023 [facility] [place] of Occupat ional Health - Occupational Stress [...] place to sleep or slept in a usp (including now)? No 01/05/2023 Sex and Gender [...] Total 202(H) <200 mg/dL 01/06/2023 4:13 AM [facility] HDL 41 >40 mg/dL 01/06/2023 4:13 AM [facility] Comment: ATP III Classification of HDL Cholesterol: ? <40 mg/dL: ??Considered a major risk factor. ? >60 mg/dL: ??Considered a negative risk factor. ? LDL Calculated 144(H) <100 mg/dL 01/06/2023 4:13 AM [facility] Comment: ATP III Classification of LDL Cholesterol: ?<100 mg/dL: ??Optimal ? 100 - 129 mg/dL: ??Near Optimal/Above Optimal ? 130 - 159 mg/dL: ??Borderline High ? 160 - 189 mg/dL: ??High ?>190 mg/dL: ??Very High ? Triglycerides 85 <150 mg/dL 01/06/2023 4:13 AM CDT [facility] Comment: ATP III Classification of Triglycerides: ?<150 mg/dL: ??Normal ? 150 - 199 mg/dL: ??Borderline High ? 200 - 400 mg/dL: ??High ?>500 mg/dL: ??Very High Blood BLOOD SPECIMEN / Unknown Lab Venipuncture / Unknown 01/06/2023 2:51 AM CDT 01/06/2023 3:44 AM CDT Mil Brunson MD LAB - CHEMISTRY KIAN SAMAYOA Performing Organization Address City/State/[facility] Co de Phone Number [facility] [address] [place] [address], [place] [phone] from Last 3 Months or Most Recently Relevant to Health Maintenance Advance Directives * Full Code (Latest Code Status on File) Date Activated Date Inactivated Comments 01/04/2023 5:53 PM 01/06/2023 5:45 PM
--- OUTSIDE RECORDS SUMMARY | 2024-10-24 02:05 | XMS_ITS | Patient Health Summary ---
Author Organization [facility] Address [address] 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 This disclosure is being madepursuant to the Care Everywhere program and may not contain all information available regarding this patient. Last updated 18.[facility] [employer] Allergies No known active allergies Medications * Be aware that medications may not be up to date on this document. Alwaysverify current medications with the patient. * ezyzqhdd-pnyvucupf-mg (CORTISPORIN) [id number] otic suspension(Started 09/23/2018) Instill 3 drops into [...] and heating? Not hard at all 01/05/2023 [facility] - [...] place to sleep or slept in a residential (including now)? No 01/05/2023 Sex and Gender [...] 5.6 <=5.6 % 01/06/2023 3:39 PM CDT [facility] Estimated Average Glucose 114 mg/dL 01/06/2023 3:39 PM [facility] Comment: HbA1c Interpretation: Normal : < 5.7% Pre-diabetes: 5.7-6.4% Diabetes: Equal to or greater than 6.5% Test results diagnostic of diabetes should be repeated for confirmation. Treatment target values recommended by ADA and other clinical organizations should be used to evaluate metabolic control in patients. Reference: [place] Diabetes Association, Standards of Care in Diabetes [...] Brunson MD LAB - CHEMISTRY KIAN SAMAYOA [facility] Organization Address City/State/ZIP Co de Phone Number [address] [address] [phone] * (ABNORMAL) CBC W/O DIFFERENTIAL (01/06/2023 2:51 AM CDT) Only the most recent of2 resultswithin the time period is included. WBC 12.3(H) 3.5 - 10.5 10? 3 /uL 01/06/2023 3:51 AM [facility] RBC 5.82(H) 4.30 - 5.70 10? 6 /uL 01/06/2023 3:51 AM [facility] Hemoglobin 14.0 12.0 - 17.6 g/dL 01/06/2023 3:51 AM [facility] Hematocrit 41.3 35.2 - 51.7 % 01/06/2023 3:51 AM [facility] MCV 71.0(L) 80.7 - 98.3 fL 01/06/2023 3:51 AM [facility] MCH 24.1(L) 26.7 - 34.0 pg 01/06/2023 3:51 AM [facility] MCHC 33.9 30.8 - 35.9 g/dL 01/06/2023 3:51 AM T [facility] RDW-SD 37.2 36.0 - 50.0 fL 01/06/2023 3:51 AM [facility] RDW-CV 14.9(H) 11.2 - 14.8 % 01/06/2023 3:51 AM [facility] Platelet Count 232 150 - 400 10? 3 /uL 01/06/2023 3:51 AM [facility] MPV 10.8 9.4 - 12.9 fL 01/06/2023 3:51 AM [facility] Immature Platelet Fraction 2.4 1.1 - 6.2 % 01/06/2023 3:51 AM [facility] nRBC Absolute 0.00 0 10? 3 /uL 01/06/2023 3:51 AM [facility] nRBC Auto 0.0 0 /100 WBC 01/06/2023 3:51 AM [facility] Blood BLOOD SPECIMEN / Unknown Lab Venipuncture / Unknown 01/06/2023 2:51 AM CDT 01/06/2023 3:44 AM CDT Mil Brunson MD LAB - HEMATOLOGY ORD ERABLES [facility] [address] [place] [address], [facility] [phone] * (ABNORMAL) BASIC METABOLIC PANEL (CALCIUM TOTAL) (01/06/2023 2:51 AM CDT) Only the most recent of2 resultswithin the time period is included. BUN 18 7 - 26 mg/dL 01/06/2023 4:13 AM [facility] Creatinine 0.75 0.71 - 1.16 mg/dL 01/06/2023 4:13 AM [facility] Sodium 139 136 - 145 mmol/L 01/06/2023 4:13 AM [facility] Potassium 3.3(L) 3.5 - 4.5 mmol/L 01/06/2023 4:13 AM [facility] Chloride 106 98 - 107 mmol/L 01/06/2023 4:13 AM [facility] CO2 22 22 - 29 mmol/L 01/06/2023 4:13 AM [facility] Glucose 103 70 - 115 mg/dL 01/06/2023 4:13 AM [facility] Calcium 9.1 8.4 - 10.2 mg/dL 01/06/2023 4:13 AM [facility] Anion Gap 14 8 - 18 01/06/2023 4:13 AM [facility] BUN/Creatinine Ratio 24(H) 7 - 23 01/06/2023 4:13 AM [facility] Osmolality Calculated 290 270 - 300 mOsm/kg 01/06/2023 4:13 AM [facility] eGFR by CKD-EPI >90 >=90 mL/min/1.7 3 m2 01/06/2023 4:13 AM [facility] Blood BLOOD SPECIMEN / Unknown Lab Venipuncture / Unknown 01/06/2023 2:51 AM CDT 01/06/2023 3:44 AM CDT Mil Brunson MD LAB - CHEMISTRY KIAN SAMAYOA [address] [address], [facility] [phone] * (ABNORMAL) PHOSPHORUS BLOOD (01/06/2023 2:51 AM CDT) Phosphorus 2.2(L) 2.8 - 5.1 mg/dL 01/06/2023 4:13 AM [facility] Blood BLOOD SPECIMEN / Unknown Lab Venipuncture / Unknown 01/06/2023 2:51 AM CDT 01/06/2023 3:44 AM CDT Mil Brunson MD LAB - CHEMISTRY KIAN SAMAYOA [address] [address], [place] [phone] * MAGNESIUM BLOOD (01/06/2023 2:51 AM CDT) Pathologist [facility] Magnesium 2.0 1.6 - 2.6 mg/dL 01/06/2023 4:13 AM [facility] Blood BLOOD SPECIMEN / Unknown Lab Venipuncture / Unknown 01/06/2023 2:51 AM CDT 01/06/2023 3:44 AM CDT Mil Brunson MD LAB - CHEMISTRY KIAN SAMAYOA [facility] [address] [place] [address], [facility] [phone] * (ABNORMAL) LIPID PROFILE (01/06/2023 2:51 AM CDT) [facility] Cholesterol Total 202(H) <200 mg/dL 01/06/2023 4:13 AM [facility] HDL 41 >40 mg/dL 01/06/2023 4:13 AM [facility] Comment: ATP III Classification of HDL Cholesterol: ? <40 mg/dL: ??Considered a major risk factor. ? >60 mg/dL: ??Considered a negative risk factor. ? LDL Calculated 144(H) <100 mg/dL 01/06/2023 4:13 AM [facility] Comment: ATP III Classification of LDL Cholesterol: ?<100 mg/dL: ??Optimal ? 100 - 129 mg/dL: ??Near Optimal/Above Optimal ? 130 - 159 mg/dL: ??Borderline High ? 160 - 189 mg/dL: ??High ?>190 mg/dL: ??Very High ? Triglycerides 85 <150 mg/dL 01/06/2023 4:13 AM [facility] Comment: ATP III Classification of Triglycerides: ?<150 mg/dL: ??Normal ? 150 - 199 mg/dL: ??Borderline High ? 200 - 400 mg/dL: ??High ?>500 mg/dL: ??Very High Blood BLOOD SPECIMEN / Unknown Lab Venipuncture / Unknown 01/06/2023 2:51 AM CDT 01/06/2023 3:44 AM CDT Mil Brunson MD LAB - CHEMISTRY KIAN SAMAYOA Performing Organization Address [facility]/ZIP Co de Phone Number [facility] [address] [place] [address], [place] [phone] * CULTURE BLOOD (01/05/2023 12:42 PM CDT) Only the most recent of2 resultswithin the time period is included. Culture No growth day 5 ALFONZO 01/10/2023 5:02 PM CDT [facility] Blood PERIPHERAL BLOOD / Unknown Venipuncture / Unknown 01/05/2023 12:42 PM CDT 01/05/2023 12:48 PM CDT Mil Brunson MD LAB - MICROBIOLOGY O RDERAISABELLA Performing Organization Address [facility] Co de Phone Number [facility] [address] [place] [address], [facility] [phone] * BLOOD TYPE VERIFICATION (01/05/2023 12:34 PM CDT) ABO Rh O POS 01/05/2023 1:3 0 PM CDT [facility] Blood Bank BLOOD SPECIMEN / Unknown Venipuncture / Unknown 01/05/2023 12:34 PM CDT 01/05/2023 12:51 PM CDT Neema Mcnamara MD LAB - BLOOD BANK ORD VIDHI Performing Organization Address [facility] Co de Phone Number [facility] [address] [place] [address], [place] [phone] * CULTURE WOUND+GRAM STAIN (01/05/2023 8:39 AM CDT) Pathologist [facility] Culture Light normal oropharyngeal madhav 01/07/2023 10:13 PM CDT [facility] Gram Stain Moderate Polymorphonuclear cells 01/07/2023 10:13 PM CDT [facility] Gram Stain Moderate Gram-positive cocci 01/07/2023 10:13 PM CDT [facility] Gram Stain Light Gram-positive bacilli 01/07/2023 10:13 PM CDT [facility] Gram Stain Light Gram-negative bacilli 01/07/2023 10:13 PM CDT [facility] Microbiology ENTIRE MOUTH REGION / Unknown Collection / Unknown 01/05/2023 8:39 AM CDT 01/05/2023 8:42 AM CDT Mil Brunson MD LAB - MICROBIOLOGY O RDERABLES [facility] [address] [place] [address], [facility] [phone] * RESPIRATORY PANEL WITH SARS-COV-2 BY PCR (STL) (01/05/2023 5:19 AM CDT) [facility] Adenovirus PCR Not detected Not detected 01/05/2023 12:55 PM CDT [facility] Coronavirus 229E PCR Not detected Not detected 01/05/2023 12:55 PM CDT [facility] Coronavirus HKU1 PCR Not detected Not detected 01/05/2023 12:55 PM CDT [facility] Coronavirus NL63 PCR Not detected Not detected 01/05/2023 12:55 PM CDT [facility] Coronavirus OC43 PCR Not detected Not detected 01/05/2023 12:55 PM CDT [facility] COVID-19 PCR Not detected Not detected 01/05/2023 12:55 PM CDT [facility] Human Metapneumovirus PCR Not detected Not detected 01/05/2023 12:55 PM CDT [facility] Human Rhinovirus/Enterov irus PCR Not detected Not detected 01/05/2023 12:55 PM CDT [facility] Influenza A PCR Not detected Not detected 01/05/2023 12:55 PM CDT [facility] Influenza B PCR Not detected Not detected 01/05/2023 12:55 PM CDT [facility] Parainfluenza Virus 1 PCR Not detected Not detected 01/05/2023 12:55 PM CDT [facility] Parainfluenza Virus 2 PCR Not detected Not detected 01/05/2023 12:55 PM CDT [facility] Parainfluenza Virus 3 PCR Not detected Not detected 01/05/2023 12:55 PM CDT [facility] Parainfluenza Virus 4 PCR Not detected Not detected 01/05/2023 12:55 PM CDT [facility] Respiratory Syncytial Virus PCR Not detected Not detected 01/05/2023 12:55 PM CDT [facility] Bordetella parapertussis PCR Not detected Not detected 01/05/2023 12:55 PM CDT [facility] Bordetella pertussis PCR Not detected Not detected 01/05/2023 12:55 PM CDT [facility] Chlamydia pneumoniae PCR Not detected Not detected 01/05/2023 12:55 PM CDT [facility] Mycoplasma pneumoniae PCR Not detected Not detected 01/05/2023 12:55 PM CDT [facility] Microbiology SPECIMEN FROM NASOPHARYNGEAL STRUCTURE / Unknown Collection / Unknown 01/05/2023 5:19 AM CDT 01/05/2023 5:34 AM CDT Narrative [facility] - 01/05/2023 12:55 PM CDT This nucleic amplification assay has received FDA authorization via the [place] [employer]. Mil Brunson MD LAB - MICROBIOLOGY O RDERABLES [facility] [address] [place] [address], [facility] [phone] * (ABNORMAL) COMPREHENSIVE METABOLIC PANEL (01/05/2023 4:58 AM CDT) BUN 13 7 - 26 mg/dL 01/05/2023 5:31 AM CDT [facility] Creatinine 0.72 0.71 - 1.16 mg/dL 01/05/2023 5:31 AM CDT [facility] Sodium 140 136 - 145 mmol/L 01/05/2023 5:31 AM [facility] Potassium 3.4(L) 3.5 - 4.5 mmol/L 01/05/2023 5:31 AM [facility] Chloride 106 98 - 107 mmol/L 01/05/2023 5:31 AM [facility] CO2 23 22 - 29 mmol/L 01/05/2023 5:31 AM [facility] Glucose 119(H) 70 - 115 mg/dL 01/05/2023 5:31 AM [facility] Calcium 9.5 8.4 - 10.2 mg/dL 01/05/2023 5:31 AM [facility] Protein Total 7.8 6.0 - 8.3 g/dL 01/05/2023 5:31 AM [facility] Albumin 3.9 3.4 - 5.0 g/dL 01/05/2023 5:31 AM [facility] Bilirubin Total 0.7 0.2 - 1.2 mg/dL 01/05/2023 5:31 AM [facility] Alkaline Phosphatase 101 40 - 150 U/L 01/05/2023 5:31 AM [facility] ALT 28 5 - 55 U/L 01/05/2023 5:31 AM [facility] AST 18 5 - 34 U/L 01/05/2023 5:31 AM [facility] Anion Gap 14 8 - 18 01/05/2023 5:31 AM [facility] BUN/Creatinine Ratio 18 7 - 23 01/05/2023 5:31 AM [facility] Osmolality Calculated 291 270 - 300 mOsm/kg 01/05/2023 5:31 AM [facility] Albumin/Globulin Ratio 1.0(L) 1.1 - 2.3 01/05/2023 5:31 AM [facility] eGFR by CKD-EPI >90 >=90 mL/min/1.7 3 m2 01/05/2023 5:31 AM [facility] Blood BLOOD SPECIMEN / Unknown Venipuncture / Unknown 01/05/2023 4:58 AM CDT 01/05/2023 5:03 AM T Mil Brunson MD LAB - CHEMISTRY KIAN SAMAYOA [address] [address], [place] [phone] * LACTIC ACID BLOOD (01/05/2023 4:58 AM CDT) Lactic Acid-Stat 1.4 <=2.0 mmol/L 01/05/2023 5:26 AM CDT [facility] Blood BLOOD SPECIMEN / Unknown Venipuncture / Unknown 01/05/2023 4:58 AM CDT 01/05/2023 5:03 AM CDT Macy Mason MD LAB - CHEMISTRY KIAN SAMAYOA [address] [address], [place] [phone] * (ABNORMAL) GLUCOSE - POINT OF CARE (01/05/2023 12:30 AM CDT) Pathologist [facility] Glucose WB/POC 171(H) 70 - 115 mg/dL 01/05/2023 6:09 AM CDT [facility] Specimen Type Cap Fingerstick 2022 6:09 AM CDT [facility] Blood BLOOD SPECIMEN / Unknown 01/05/2023 12:30 AM CDT 01/05/2023 6:09 AM CDT Mil Brunson MD LAB - POINT OF CARE ORDERABLES [address] [address], [place] [phone] * CT NECK SOFT TISSUE W CONT [...] DATE/TIME OF EXAM: ??01/04/2023 8:57 PM, LOCATION ??[facility] INDICATION: R22.0: Facial swelling K08.9: Poor dentition [...] PANOREX, DATE/TIME OF EXAM: [facility]04[facility]23 8[facility]57 PM[facility]: R22.0: Facial swelling K08.9: [...] 3.8(H) <=0.5 mg/dL 01/04/2023 5:47 PM CDT [facility] Blood BLOOD SPECIMEN / Unknown Venipuncture / Unknown 01/04/2023 5:15 PM CDT 01/04/2023 5:22 PM CDT Reinaldo Barkley MD LAB - CHEMISTRY KIAN SAMAYOA [facility] [address] [place] [address], [facility] [phone] * TYPE + SCREEN PANEL (01/04/2023 5:15 PM CDT) Antibody Screen NEG 6:10 PM CDT [facility] ABO Rh O POS 01/04/2023 6:10 PM CDT [facility] Blood Bank BLOOD SPECIMEN / Unknown Venipuncture / Unknown 01/04/2023 5:15 PM CDT 01/04/2023 5:27 PM CDT Reinaldo Barkley MD LAB - BLOOD BANK ORD VIDHI [facility] [address] [place] [address], [facility] [phone] * (ABNORMAL) ERYTHROCYTE SEDIMENTATION RATE (01/04/2023 5:15 PM CDT) Pathologist [facility] Erythrocyte Sedimentation Rate Westergren 58(H) 0 - 15 MM/HR 01/04/2023 5:50 PM CDT [facility] Blood BLOOD SPECIMEN / Unknown Venipuncture / Unknown 01/04/2023 5:15 PM CDT 01/04/2023 5:23 PM CDT Reinaldo Barkley MD LAB - HEMATOLOGY ORD ERABLES [facility] [address] [place] [address], [facility] [phone] * (ABNORMAL) CBC W AUTO DIFFERENTIAL (01/04/2023 5:15 PM CDT) Pathologist [facility] WBC 15.7(H) 3.5 - 10.5 10? 3 /uL 01/04/2023 5:30 PM [facility] RBC 5.67 4.30 - 5.70 10? 6 /uL 01/04/2023 5:30 PM [facility] Hemoglobin 13.7 12.0 - 17.6 g/dL 01/04/2023 5:30 PM [facility] Hematocrit 40.4 35.2 - 51.7 % 01/04/2023 5:30 PM [facility] MCV 71.3(L) 80.7 - 98.3 fL 01/04/2023 5:30 PM [facility] MCH 24.2(L) 26.7 - 34.0 pg 01/04/2023 5:30 PM [facility] MCHC 33.9 30.8 - 35.9 g/dL 01/04/2023 5:30 PM T [facility] RDW-SD 36.8 36.0 - 50.0 fL 01/04/2023 5:30 PM [facility] RDW-CV 14.7 11.2 - 14.8 % 01/04/2023 5:30 PM [facility] Platelet Count 235 150 - 400 10? 3 /uL 01/04/2023 5:30 PM [facility] MPV 10.1 9.4 - 12.9 fL 01/04/2023 5:30 PM [facility] Immature Platelet Fraction 2.1 1.1 - 6.2 % 01/04/2023 5:30 PM [facility] nRBC Absolute 0.00 0 10? 3 /uL 01/04/2023 5:30 PM [facility] nRBC Auto 0.0 0 /100 WBC 01/04/2023 5:30 PM [facility] Neutrophils % 89.2(H) 35.0 - 70.0 % 01/04/2023 5:30 PM [facility] Lymphocytes % 7.2(L) 20.0 - 43.0 % 01/04/2023 5:30 PM [facility] Monocytes % 2.9(L) 5.0 - 13.0 % 01/04/2023 5:30 PM [facility] Eosinophils % 0.1 0.0 - 6.0 % 01/04/2023 5:30 PM [facility] Basophil % 0.2 0.0 - 2.0 % 01/04/2023 5:30 PM [facility] Neutrophils Absolute 13.99(H) 1.60 - 7.00 10? 3 /uL 01/04/2023 5:30 PM [facility] Lymphocyte Absolute 1.13 1.10 - 3.90 10? 3 /uL 01/04/2023 5:30 PM [facility] Monocytes Absolute 0.46 0.26 - 1.07 10? 3 /uL 01/04/2023 5:30 PM [facility] Eosinophils Absolute 0.01 0.00 - 0.47 10? 3 /uL 01/04/2023 5:30 PM [facility] Basophils Absolute 0.03 0.00 - 0.08 10? 3 /uL 01/04/2023 5:30 PM [facility] Immature Granulocytes % 0.4 0.0 - 1.0 % 01/04/2023 5:30 PM [facility] Immature Granulocytes Absolute 0.07 01/04/2023 5:30 PM [facility] Blood BLOOD SPECIMEN / Unknown Venipuncture / Unknown 01/04/2023 5:15 PM CDT 01/04/2023 5:23 PM CDT Reinaldo Barkley MD LAB - HEMATOLOGY ORD ERABLES [facility] [address] [place] [address], [place] [phone] * ED FOREIGN BODY REMOVAL (09/27/2018 1:33 AM [employer]) Narrative Jacobo Mathias, DO - 09/27/2018 1:33 AM [employer] Katy Jacques, QUIN ? 09/26/2018 ??9:02 AM [...]
== END 2024-10-24 02:14 | disposition home or self-care (01) ==
LOC: ANHED 10-24 02:02
PROVIDERS: Emergency Medicine; Emergency Provider Physician Assistant; PCP Nurse Practitioner Adult Health
DX: J10.1 Influenza due to other identified influenza virus with other respiratory manifestations (principal); I10 Essential (primary) hypertension; Z20.822 Contact with and (suspected) exposure to COVID-19
CPT/HCPCS: 87637; 99283